=== PATIENT | female | born 1930 | race Caucasian/White ===

== ENCOUNTER 2018-02-17 04:59 | Inpatient (IN) | payer MEDICARE, MEDICAID ==
[2018-02-17] MEDS: SODIUM CHLORIDE 0.9% 1L BAG IV* (05:06)
[2018-02-17 06:26] LABS: ADD MAN DIFF? NO
[2018-02-17] MEDS: ALBUTEROL 0.5% (NEB) 2.5 MG/0.5 ML AMP INH (06:44)
[2018-02-17] MEDS: IPRATROPIUM (NEB) 0.5 MG/2.5 ML AMP INH (06:44)
[2018-02-17 06:47] LABS: INR 1.23; PROTIME 15.7 Sec (11.9-14.9); PT RATIO 1.2
[2018-02-17 06:48] LABS: PARTIAL THROMBOPLASTIN TIME 48.4 Sec (23.0-35.0)
[2018-02-17] MEDS ORDERED: SUCCINYLCHOLINE CHLORIDE 100 MG/5 ML SYG IV (07:00)
[2018-02-17] MEDS ORDERED: ETOMIDATE 20 MG INJ (07:00)
[2018-02-17] MEDS ORDERED: NORepinephrine 8MG/250 ML BAG (07:00)
[2018-02-17] MEDS ORDERED: MIDAZOLAM 1 MG/ML 2 ML INJ (07:00)
[2018-02-17 07:01] LABS: ALANINE AMINOTRANSFERASE 14 IU/L (13-69); ALBUMIN 3.5 g/dl (3.3-4.9); ALBUMIN/GLOBULIN RATIO 1.09; ALKALINE PHOSPHATASE 115 IU/L (42-121); ANION GAP 7 (5-13); ASPARTATE AMINO TRANSFERASE 30 IU/L (15-46); BILIRUBIN,INDIRECT 0.1 mg/dl (0-1.1); BILIRUBIN,TOTAL 0.1 mg/dl (0.2-1.3); BLOOD UREA NITROGEN 21 mg/dl (7-20); CALCIUM 9.1 mg/dl (8.4-10.2); CARBON DIOXIDE 35 mmol/L (21-31); CHLORIDE 99 mmol/L (97-110); CREATININE 0.65 mg/dl (0.44-1.00); GLUCOSE 118 mg/dl (70-220); POTASSIUM 4.7 mmol/L (3.5-5.1); SODIUM 141 mmol/L (135-144); TOTAL PROTEIN 6.7 g/dl (6.1-8.1)
[2018-02-17 07:11] LABS: WHITE BLOOD COUNT 18.1 10^3/ul (4.8-10.8)
[2018-02-17 07:11] LABS: BASOPHIL # 0.1 10^3/ul (0.0-0.1); BASOPHILS % 0.3 % (0.0-2.0); HEMATOCRIT 40.5 % (37.0-47.0); HEMOGLOBIN 12.2 g/dl (12.0-16.0); LYMPHOCYTES # 1.8 10^3/ul (0.8-2.9); LYMPHOCYTES % 10.1 % (15.0-51.0); MEAN CORPUSCULAR HEMOGLOBIN 26.2 pg (29.0-33.0); MEAN CORPUSCULAR HGB CONC 30.1 g/dl (32.0-37.0); MEAN CORPUSCULAR VOLUME 87.1 fl (82.0-101.0); MEAN PLATELET VOLUME 11.1 fl (7.4-10.4); MONOCYTES % 5.5 % (0.0-11.0); NEUTROPHIL # 15.1 10^3/ul (1.6-7.5); NEUTROPHILS % 83.3 % (39.0-77.0); PLATELET COUNT 286 10^3/UL (140-415); RED BLOOD COUNT 4.65 10^6/ul (4.20-5.40); RED CELL DISTRIBUTION WIDTH 14.7 % (11.5-14.5); TROPONIN-I 0.025 ng/ml (0.000-0.120)
[2018-02-17] MEDS: ETOMIDATE 20 MG INJ IV (07:14)
[2018-02-17] MEDS: SUCCINYLCHOLINE CHLORIDE 100 MG/5 ML SYG IV (07:14)
[2018-02-17] MEDS: CEFEPIME 2GM/50 ML (PMX) 50 ML IVPB ×2 (07:14→20:18)
[2018-02-17 07:25] LABS: ADD UMIC YES; UR ASCORBIC ACID 40 mg/dL (NEGATIVE); UR BILIRUBIN (Dip) NEGATIVE (NEGATIVE); UR BLOOD (Dip) NEGATIVE (NEGATIVE); UR CLARITY SLIGHTLY CLOUDY (CLEAR); UR COLOR YELLOW (YELLOW); UR GLUCOSE (Dip) NEGATIVE (NEGATIVE); UR KETONES (Dip) NEGATIVE (NEGATIVE); UR LEUKOCYTE ESTERASE (Dip) NEGATIVE Leu/ul (NEGATIVE); UR MUCUS FEW /HPF (NONE SEEN); UR NITRITE (Dip) NEGATIVE (NEGATIVE); UR RBC 6 /HPF (0-5); UR SQUAMOUS EPITHELIAL CELL FEW /HPF (FEW); UR TOTAL PROTEIN (Dip) 1+ mg/dl (NEGATIVE); UR UROBILINOGEN (Dip) NEGATIVE (NEGATIVE); UR WBC 3 /HPF (0-5)
[2018-02-17 07:49] LABS: AADO2 Arterial 336.3 mmHg (7.0-24.0); Allen Test ACCEPTAB; Arterial Base Excess 2.4 mmol/L (-3.0-3); Arterial Blood Gas Oxygen Sat 99.3 mmHG (95.0-100.0); Arterial COHb 0.8 % (0.0-3.0); Arterial Fraction of Oxyhgb 98.2 % (93.0-99.0); Arterial HCO3 29.2 mmol/L (22.0-26.0); Arterial MetHb 0.3 % (0.0-1.5); Arterial pCO2 55.4 mmhg (35-45); MODE VENT - AC; Site Right Radial
[2018-02-17] MEDS ORDERED: MIDAZOLAM 5 MG/ML 1 ML (08:00)
[2018-02-17] MEDS: FENTAnyl (DRIP) 1000 mcg/100mL 100 ML IV (08:18)
[2018-02-17] MEDS: VANCOMYCIN 1 GM (PMX) 250 ML IVPB (08:19)
[2018-02-17] MEDS: MIDAZOLAM (DRIP) 50 mg/50 mL 50 ML IV ×2 (08:45→23:47)
[2018-02-17] MEDS ORDERED: NACL 0.9% 3 ML SYG IV (10:00)
[2018-02-17 10:21] LABS: LACTIC ACID 1.6 mmol/L (0.5-2.0)
[2018-02-17 10:21] LABS: MAGNESIUM 1.8 mg/dl (1.7-2.5)
[2018-02-17] MEDS ORDERED: VANCOMYCIN IV PER PHARMACY XX (10:30)
[2018-02-17 10:31] LABS: B-TYPE NATRIURETIC PEPTIDE 3980 PG/ML (0-450)
[2018-02-17] MEDS: FUROSEMIDE 40 MG INJ IV (11:28)
[2018-02-17] MEDS ORDERED: HEPARIN 5,000 UNIT/1 ML VIAL SC (14:00)
[2018-02-17] MEDS: ENOXAPARIN 60 MG/0.6 ML SYG SC (20:17)
[2018-02-17] MEDS: SOD CHLORIDE 0.9% 1,000 ML IV ×2 (22:32→23:20)
[2018-02-18 04:52] LABS: ADD MAN DIFF? NO
[2018-02-18 04:56] LABS: WHITE BLOOD COUNT 9.6 10^3/ul (4.8-10.8)
[2018-02-18 04:56] LABS: BASOPHILS % 0.3 % (0.0-2.0); HEMOGLOBIN 9.9 g/dl (12.0-16.0); LYMPHOCYTES # 1.1 10^3/ul (0.8-2.9); LYMPHOCYTES % 11.6 % (15.0-51.0); MEAN CORPUSCULAR HEMOGLOBIN 26.2 pg (29.0-33.0); MEAN CORPUSCULAR HGB CONC 30.9 g/dl (32.0-37.0); MEAN CORPUSCULAR VOLUME 84.7 fl (82.0-101.0); MEAN PLATELET VOLUME 11.9 fl (7.4-10.4); MONOCYTE # 0.8 10^3/ul (0.3-0.9); MONOCYTES % 7.9 % (0.0-11.0); NEUTROPHIL # 7.7 10^3/ul (1.6-7.5); NEUTROPHILS % 79.8 % (39.0-77.0); PLATELET COUNT 220 10^3/UL (140-415); RED BLOOD COUNT 3.78 10^6/ul (4.20-5.40); RED CELL DISTRIBUTION WIDTH 15.2 % (11.5-14.5)
[2018-02-18 05:01] LABS: HEMOGLOBIN A1C 5.3 % (0-5.9)
[2018-02-18 05:28] LABS: ALANINE AMINOTRANSFERASE 25 IU/L (13-69); ALBUMIN 2.7 g/dl (3.3-4.9); ALBUMIN/GLOBULIN RATIO 1.03; ALKALINE PHOSPHATASE 98 IU/L (42-121); ANION GAP 4 (5-13); ASPARTATE AMINO TRANSFERASE 24 IU/L (15-46); BILIRUBIN,INDIRECT 0.2 mg/dl (0-1.1); BILIRUBIN,TOTAL 0.2 mg/dl (0.2-1.3); BLOOD UREA NITROGEN 25 mg/dl (7-20); CALCIUM 8.2 mg/dl (8.4-10.2); CARBON DIOXIDE 31 mmol/L (21-31); CHLORIDE 107 mmol/L (97-110); CREATININE 0.87 mg/dl (0.44-1.00); GLUCOSE 131 mg/dl (70-220); MAGNESIUM 1.9 mg/dl (1.7-2.5); PHOSPHORUS 1.7 mg/dl (2.5-4.9); SODIUM 142 mmol/L (135-144); TOTAL PROTEIN 5.3 g/dl (6.1-8.1)
[2018-02-18] MEDS: PANTOPRAZOLE 40 MG INJ IV (06:00)
[2018-02-18 08:38] LABS: AADO2 Arterial 145.6 mmHg (7.0-24.0); Allen Test ACCEPTAB; Arterial Base Excess 3.6 mmol/L (-3.0-3); Arterial Blood Gas Oxygen Sat 96.7 mmHG (95.0-100.0); Arterial COHb 0.9 % (0.0-3.0); Arterial Fraction of Oxyhgb 95.5 % (93.0-99.0); Arterial HCO3 27.7 mmol/L (22.0-26.0); Arterial MetHb 0.3 % (0.0-1.5); Arterial Total Hemglobin 11.1 g/dl (12.0-18.0); MODE VENT - AC; Site Right Radial
[2018-02-18] MEDS: FUROSEMIDE 40 MG INJ IV (08:57)
[2018-02-18] MEDS: CEFEPIME 2GM/50 ML (PMX) 50 ML IVPB ×2 (09:02→20:21)
[2018-02-18] MEDS: ASPIRIN (EC) 81 MG TAB PO (09:05)
[2018-02-18] MEDS: VANCOMYCIN 750 MG in SOD CHLORIDE 0.9% 150 ML IVPB (09:18)
[2018-02-18] MEDS: ENOXAPARIN 60 MG/0.6 ML SYG SC ×2 (09:27→20:22)
[2018-02-18] MEDS: SODIUM PHOSPHATE 30 MMOL in SOD CHLORIDE 0.9% 250 ML IVPB (09:55)
[2018-02-18] MEDS: LEVOTHYROXINE 100 MCG VIAL IV (10:57)
[2018-02-18] MEDS: DIGOXIN 0.125 MG TAB PO (12:38)
[2018-02-18] MEDS: SOD CHLORIDE 0.9% 1,000 ML IV (12:38)
[2018-02-18] MEDS: ACETAMINOPHEN 650MG/20.3ML CUP NGT (21:14)
[2018-02-18] MEDS: FENTAnyl (DRIP) 1000 mcg/100mL 100 ML IV (21:29)
[2018-02-18] MEDS ORDERED: NORepinephrine 8MG/250 ML (PMX 250 ML (22:42)
[2018-02-18] MEDS ORDERED: ALBUMIN HUMAN 25% 100 ML (22:49)
[2018-02-18] MEDS: ALBUMIN HUMAN 25% 100 ML IV ×2 (23:02→23:08)
[2018-02-18] MEDS: NORepinephrine 8MG/250 ML (PMX 250 ML IV (23:49)
[2018-02-19] MEDS: SOD CHLORIDE 0.9% 1,000 ML IV ×2 (03:42→18:28)
[2018-02-19 05:08] LABS: ADD MAN DIFF? NO
[2018-02-19 05:14] LABS: BASOPHILS % 0.2 % (0.0-2.0); EOSINOPHILS % 0.3 % (0.0-7.0); HEMATOCRIT 31.3 % (37.0-47.0); HEMOGLOBIN 9.5 g/dl (12.0-16.0); LYMPHOCYTES # 1.2 10^3/ul (0.8-2.9); LYMPHOCYTES % 13.3 % (15.0-51.0); MEAN CORPUSCULAR HGB CONC 30.4 g/dl (32.0-37.0); MEAN CORPUSCULAR VOLUME 85.5 fl (82.0-101.0); MEAN PLATELET VOLUME 11.9 fl (7.4-10.4); MONOCYTE # 0.6 10^3/ul (0.3-0.9); MONOCYTES % 6.5 % (0.0-11.0); NEUTROPHIL # 7.3 10^3/ul (1.6-7.5); NEUTROPHILS % 79.3 % (39.0-77.0); PLATELET COUNT 194 10^3/UL (140-415); RED BLOOD COUNT 3.66 10^6/ul (4.20-5.40); RED CELL DISTRIBUTION WIDTH 15.3 % (11.5-14.5)
[2018-02-19 05:14] LABS: WHITE BLOOD COUNT 9.3 10^3/ul (4.8-10.8)
[2018-02-19] MEDS: PANTOPRAZOLE 40 MG INJ IV (05:31)
[2018-02-19 05:45] LABS: ANION GAP 10 (5-13); BLOOD UREA NITROGEN 25 mg/dl (7-20); CALCIUM 8.2 mg/dl (8.4-10.2); CARBON DIOXIDE 30 mmol/L (21-31); CHLORIDE 107 mmol/L (97-110); CREATININE 0.71 mg/dl (0.44-1.00); GLUCOSE 126 mg/dl (70-220); PHOSPHORUS 2.3 mg/dl (2.5-4.9); SODIUM 147 mmol/L (135-144)
[2018-02-19 05:52] LABS: POTASSIUM 2.9 mmol/L (3.5-5.1)
[2018-02-19] MEDS: POTASSIUM CHLORIDE 50 ML IVPB ×2 (06:19→08:37)
[2018-02-19] MEDS: CEFEPIME 2GM/50 ML (PMX) 50 ML IVPB (08:37)
[2018-02-19] MEDS: ENOXAPARIN 60 MG/0.6 ML SYG SC ×2 (08:41→21:32)
[2018-02-19] MEDS: FUROSEMIDE 40 MG INJ IV (08:42)
[2018-02-19] MEDS: ASPIRIN (EC) 81 MG TAB PO (08:42)
[2018-02-19] MEDS: LEVOTHYROXINE 100 MCG VIAL IV (08:43)
[2018-02-19 09:13] LABS: AADO2 Arterial 100.6 mmHg (7.0-24.0); Allen Test ACCEPTAB; Arterial Base Excess 4.2 mmol/L (-3.0-3); Arterial Blood Gas Oxygen Sat 94.1 mmHG (95.0-100.0); Arterial COHb 1.1 % (0.0-3.0); Arterial Fraction of Oxyhgb 92.8 % (93.0-99.0); Arterial MetHb 0.3 % (0.0-1.5); Arterial Total Hemglobin 10.2 g/dl (12.0-18.0); Arterial pCO2 38.6 mmhg (35-45); MODE VENT - AC; Site Right Radial
[2018-02-19] MEDS: DEXMEDETOMIDINE HCL 200 MCG in SOD CHLORIDE 0.9% 48 ML IV ×2 (09:57→18:43)
[2018-02-19] MEDS ORDERED: POTASSIUM CHLORIDE 100 ML IVPB (10:00)
[2018-02-19] MEDS ORDERED: POTASSIUM PHOSPHATE 20 MEQ in SOD CHLORIDE 0.9% 250 ML IVPB (10:00)
[2018-02-19] MEDS: POTASSIUM PHOSPHATE 40 MEQ in SOD CHLORIDE 0.9% 250 ML IVPB (11:46)
[2018-02-19] MEDS: VANCOMYCIN 750 MG in SOD CHLORIDE 0.9% 150 ML IVPB (12:09)
[2018-02-19] MEDS: LIDOCAINE 1% (MPF) 5 ML VIAL SC (14:10)
[2018-02-19] MEDS: DIGOXIN 0.125 MG TAB PO (15:19)
[2018-02-20] MEDS: PIPER-TAZO 3.375 GM IV (PMX) 100 ML IVPB ×5 (00:06→23:29)
[2018-02-20] MEDS: FENTAnyl (DRIP) 1000 mcg/100mL 100 ML IV ×2 (00:26→22:23)
[2018-02-20] MEDS: DEXMEDETOMIDINE HCL 200 MCG in SOD CHLORIDE 0.9% 48 ML IV ×3 (04:06→19:10)
[2018-02-20 04:57] LABS: ADD MAN DIFF? NO
[2018-02-20] MEDS ORDERED: ALBUMIN HUMAN 25% 100 ML (05:00)
[2018-02-20 05:01] LABS: BASOPHILS % 0.5 % (0.0-2.0); EOSINOPHILS % 0.3 % (0.0-7.0); HEMATOCRIT 28.5 % (37.0-47.0); HEMOGLOBIN 8.6 g/dl (12.0-16.0); LYMPHOCYTES # 0.7 10^3/ul (0.8-2.9); LYMPHOCYTES % 11.6 % (15.0-51.0); MEAN CORPUSCULAR HEMOGLOBIN 25.6 pg (29.0-33.0); MEAN CORPUSCULAR HGB CONC 30.2 g/dl (32.0-37.0); MEAN CORPUSCULAR VOLUME 84.8 fl (82.0-101.0); MEAN PLATELET VOLUME 11.6 fl (7.4-10.4); MONOCYTE # 0.4 10^3/ul (0.3-0.9); MONOCYTES % 7.2 % (0.0-11.0); NEUTROPHIL # 4.8 10^3/ul (1.6-7.5); NEUTROPHILS % 79.7 % (39.0-77.0); PLATELET COUNT 182 10^3/UL (140-415); RED BLOOD COUNT 3.36 10^6/ul (4.20-5.40); RED CELL DISTRIBUTION WIDTH 15.5 % (11.5-14.5)
[2018-02-20] MEDS: PANTOPRAZOLE 40 MG INJ IV (05:05)
[2018-02-20] MEDS: ALBUMIN HUMAN 25% 100 ML IV (05:06)
[2018-02-20 05:31] LABS: MAGNESIUM 1.7 mg/dl (1.7-2.5)
[2018-02-20 07:22] LABS: ANION GAP 9 (5-13); BLOOD UREA NITROGEN 21 mg/dl (7-20); CARBON DIOXIDE 25 mmol/L (21-31); CHLORIDE 114 mmol/L (97-110); CREATININE 0.51 mg/dl (0.44-1.00); GLUCOSE 115 mg/dl (70-220); SODIUM 148 mmol/L (135-144)
[2018-02-20 07:28] LABS: POTASSIUM 2.9 mmol/L (3.5-5.1)
[2018-02-20] MEDS ORDERED: POTASSIUM CHLORIDE 100 ML (08:09)
[2018-02-20] MEDS: ENOXAPARIN 60 MG/0.6 ML SYG SC (08:40)
[2018-02-20] MEDS: SOD CHLORIDE 0.9% 1,000 ML IV ×2 (08:42→22:26)
[2018-02-20] MEDS: LEVOTHYROXINE 100 MCG VIAL IV (08:42)
[2018-02-20] MEDS: ASPIRIN (EC) 81 MG TAB PO (08:42)
[2018-02-20] MEDS ORDERED: MAGNESIUM SULFATE 1 GM/D5W 100 ML (09:00)
[2018-02-20] MEDS: MAGNESIUM SULFATE 1 GM/D5W 100 ML IVPB (09:12)
[2018-02-20] MEDS: POTASSIUM CHLORIDE 50 ML IVPB ×2 (09:13→12:51)
[2018-02-20] MEDS: POTASSIUM PHOSPHATE 30 MM in DEXTROSE 5% 250 ML IVPB (12:17)
[2018-02-20] MEDS: DIGOXIN 0.125 MG TAB PO (12:58)
[2018-02-20] MEDS: VANCOMYCIN 750 MG in SOD CHLORIDE 0.9% 150 ML IVPB (14:35)
[2018-02-20] MEDS: POTASSIUM CHLORIDE 20 MEQ POWDER FOR ORAL SOLN NGT (15:50)
[2018-02-20] MEDS: MAGNESIUM SULFATE 2 GM/50 ML 50 ML IVPB (15:50)
[2018-02-20] MEDS: NORepinephrine 8MG/250 ML (PMX 250 ML IV (22:22)
[2018-02-21 01:06] LABS: ANION GAP 4 (5-13); BLOOD UREA NITROGEN 21 mg/dl (7-20); CALCIUM 7.5 mg/dl (8.4-10.2); CARBON DIOXIDE 25 mmol/L (21-31); CHLORIDE 118 mmol/L (97-110); CREATININE 0.56 mg/dl (0.44-1.00); GLUCOSE 149 mg/dl (70-220); MAGNESIUM 2.6 mg/dl (1.7-2.5); PHOSPHORUS 2.8 mg/dl (2.5-4.9); POTASSIUM 3.9 mmol/L (3.5-5.1); SODIUM 147 mmol/L (135-144)
[2018-02-21] MEDS: VANCOMYCIN 500MG/NS (PMX) 100 ML IVPB ×2 (02:30→16:12)
[2018-02-21] MEDS: DEXMEDETOMIDINE HCL 200 MCG in SOD CHLORIDE 0.9% 48 ML IV (02:37)
[2018-02-21 05:14] LABS: ADD MAN DIFF? NO
[2018-02-21 05:15] LABS: BASOPHILS % 0.2 % (0.0-2.0); EOSINOPHILS % 0.2 % (0.0-7.0); HEMATOCRIT 29.8 % (37.0-47.0); HEMOGLOBIN 8.9 g/dl (12.0-16.0); LYMPHOCYTES # 1.1 10^3/ul (0.8-2.9); LYMPHOCYTES % 11.2 % (15.0-51.0); MEAN CORPUSCULAR HEMOGLOBIN 25.6 pg (29.0-33.0); MEAN CORPUSCULAR HGB CONC 29.9 g/dl (32.0-37.0); MEAN CORPUSCULAR VOLUME 85.9 fl (82.0-101.0); MEAN PLATELET VOLUME 11.9 fl (7.4-10.4); MONOCYTE # 0.5 10^3/ul (0.3-0.9); MONOCYTES % 5.5 % (0.0-11.0); NEUTROPHIL # 7.9 10^3/ul (1.6-7.5); NEUTROPHILS % 81.3 % (39.0-77.0); PLATELET COUNT 227 10^3/UL (140-415); RED BLOOD COUNT 3.47 10^6/ul (4.20-5.40); RED CELL DISTRIBUTION WIDTH 15.8 % (11.5-14.5)
[2018-02-21 05:15] LABS: WHITE BLOOD COUNT 9.7 10^3/ul (4.8-10.8)
[2018-02-21] MEDS: PIPER-TAZO 3.375 GM IV (PMX) 100 ML IVPB ×3 (05:18→18:55)
[2018-02-21] MEDS: PANTOPRAZOLE 40 MG INJ IV (05:18)
[2018-02-21 05:32] LABS: ALANINE AMINOTRANSFERASE 29 IU/L (13-69); ALBUMIN 2.6 g/dl (3.3-4.9); ALBUMIN/GLOBULIN RATIO 1.18; ALKALINE PHOSPHATASE 106 IU/L (42-121); ANION GAP 9 (5-13); ASPARTATE AMINO TRANSFERASE 27 IU/L (15-46); BILIRUBIN,INDIRECT 0.2 mg/dl (0-1.1); BILIRUBIN,TOTAL 0.2 mg/dl (0.2-1.3); BLOOD UREA NITROGEN 19 mg/dl (7-20); CALCIUM 7.3 mg/dl (8.4-10.2); CARBON DIOXIDE 25 mmol/L (21-31); CHLORIDE 117 mmol/L (97-110); GLUCOSE 157 mg/dl (70-220); MAGNESIUM 2.3 mg/dl (1.7-2.5); POTASSIUM 3.8 mmol/L (3.5-5.1); SODIUM 151 mmol/L (135-144); TOTAL PROTEIN 4.8 g/dl (6.1-8.1)
[2018-02-21] MEDS: POTASSIUM CHLORIDE 20 MEQ POWDER FOR ORAL SOLN NGT (08:33)
[2018-02-21] MEDS: ASPIRIN (EC) 81 MG TAB PO (08:33)
[2018-02-21] MEDS: FUROSEMIDE 20 MG INJ IV (08:33)
[2018-02-21] MEDS: LEVOTHYROXINE 100 MCG VIAL IV (08:34)
[2018-02-21] MEDS: ENOXAPARIN 60 MG/0.6 ML SYG SC (08:40)
[2018-02-21] MEDS: ASPIRIN 81 MG TAB NGT (09:00)
[2018-02-21] MEDS ORDERED: PHYTONADIONE 10 MG in DEXTROSE 5% 50 ML IVPB (11:00)
[2018-02-21] MEDS: PROPOFOL 100 ML IV ×2 (11:30→22:15)
[2018-02-21] MEDS: FENTAnyl (DRIP) 1000 mcg/100mL 100 ML IV (13:52)
[2018-02-22] MEDS: PIPER-TAZO 3.375 GM IV (PMX) 100 ML IVPB ×4 (00:03→17:58)
[2018-02-22] MEDS: FENTAnyl (DRIP) 1000 mcg/100mL 100 ML IV ×2 (04:03→19:31)
[2018-02-22] MEDS: PANTOPRAZOLE 40 MG INJ IV (05:32)
[2018-02-22 05:43] LABS: ADD MAN DIFF? NO
[2018-02-22 05:55] LABS: BASOPHILS % 0.4 % (0.0-2.0); EOSINOPHILS % 0.3 % (0.0-7.0); HEMATOCRIT 29.8 % (37.0-47.0); HEMOGLOBIN 8.9 g/dl (12.0-16.0); LYMPHOCYTES % 12.6 % (15.0-51.0); MEAN CORPUSCULAR HEMOGLOBIN 25.7 pg (29.0-33.0); MEAN CORPUSCULAR HGB CONC 29.9 g/dl (32.0-37.0); MEAN CORPUSCULAR VOLUME 86.1 fl (82.0-101.0); MEAN PLATELET VOLUME 12.3 fl (7.4-10.4); MONOCYTE # 0.5 10^3/ul (0.3-0.9); MONOCYTES % 6.2 % (0.0-11.0); NEUTROPHIL # 6.2 10^3/ul (1.6-7.5); NEUTROPHILS % 78.3 % (39.0-77.0); PLATELET COUNT 230 10^3/UL (140-415); RED BLOOD COUNT 3.46 10^6/ul (4.20-5.40); RED CELL DISTRIBUTION WIDTH 15.9 % (11.5-14.5)
[2018-02-22 05:55] LABS: WHITE BLOOD COUNT 7.9 10^3/ul (4.8-10.8)
[2018-02-22 06:15] LABS: DIGOXIN 0.6 ng/ml (1.0-2.0)
[2018-02-22 06:21] LABS: ALANINE AMINOTRANSFERASE 34 IU/L (13-69); ALBUMIN 2.8 g/dl (3.3-4.9); ALBUMIN/GLOBULIN RATIO 1.16; ALKALINE PHOSPHATASE 110 IU/L (42-121); ANION GAP 5 (5-13); ASPARTATE AMINO TRANSFERASE 45 IU/L (15-46); BILIRUBIN,INDIRECT 0.1 mg/dl (0-1.1); BILIRUBIN,TOTAL 0.1 mg/dl (0.2-1.3); BLOOD UREA NITROGEN 28 mg/dl (7-20); CALCIUM 8.6 mg/dl (8.4-10.2); CARBON DIOXIDE 31 mmol/L (21-31); CHLORIDE 112 mmol/L (97-110); CREATININE 0.85 mg/dl (0.44-1.00); GLUCOSE 143 mg/dl (70-220); MAGNESIUM 2.4 mg/dl (1.7-2.5); POTASSIUM 4.1 mmol/L (3.5-5.1); SODIUM 148 mmol/L (135-144); TOTAL PROTEIN 5.2 g/dl (6.1-8.1)
[2018-02-22 06:37] LABS: FREE T4 (FREE THYROXINE) 1.67 ng/dl (0.85-1.93)
[2018-02-22] MEDS: ASPIRIN 81 MG TAB NGT (08:47)
[2018-02-22] MEDS: ENOXAPARIN 60 MG/0.6 ML SYG SC (08:50)
[2018-02-22] MEDS: LEVOTHYROXINE 100 MCG VIAL IV (10:30)
[2018-02-22] MEDS: DIGOXIN 0.125 MG TAB PO (12:22)
[2018-02-22] MEDS: PROPOFOL 100 ML IV (12:29)
[2018-02-22] MEDS: FUROSEMIDE 20 MG INJ IV (20:11)
[2018-02-22] MEDS: NORepinephrine 8MG/250 ML (PMX 250 ML IV (22:57)
[2018-02-23] MEDS: PIPER-TAZO 3.375 GM IV (PMX) 100 ML IVPB ×5 (00:31→23:00)
[2018-02-23] MEDS: PROPOFOL 100 ML IV ×3 (00:31→23:01)
[2018-02-23 04:54] LABS: ADD MAN DIFF? NO
[2018-02-23 04:58] LABS: WHITE BLOOD COUNT 10.2 10^3/ul (4.8-10.8)
[2018-02-23 04:58] LABS: BASOPHILS % 0.4 % (0.0-2.0); EOSINOPHILS % 0.2 % (0.0-7.0); HEMATOCRIT 30.4 % (37.0-47.0); LYMPHOCYTES % 9.7 % (15.0-51.0); MEAN CORPUSCULAR HEMOGLOBIN 25.6 pg (29.0-33.0); MEAN CORPUSCULAR HGB CONC 29.6 g/dl (32.0-37.0); MEAN CORPUSCULAR VOLUME 86.4 fl (82.0-101.0); MEAN PLATELET VOLUME 11.8 fl (7.4-10.4); MONOCYTE # 0.4 10^3/ul (0.3-0.9); MONOCYTES % 4.1 % (0.0-11.0); NEUTROPHIL # 8.5 10^3/ul (1.6-7.5); NEUTROPHILS % 83.2 % (39.0-77.0); PLATELET COUNT 256 10^3/UL (140-415); RED BLOOD COUNT 3.52 10^6/ul (4.20-5.40); RED CELL DISTRIBUTION WIDTH 15.7 % (11.5-14.5)
[2018-02-23 05:21] LABS: ALANINE AMINOTRANSFERASE 31 IU/L (13-69); ALBUMIN 2.8 g/dl (3.3-4.9); ALBUMIN/GLOBULIN RATIO 0.93; ALKALINE PHOSPHATASE 102 IU/L (42-121); ANION GAP 8 (5-13); ASPARTATE AMINO TRANSFERASE 35 IU/L (15-46); BILIRUBIN,INDIRECT 0.2 mg/dl (0-1.1); BILIRUBIN,TOTAL 0.2 mg/dl (0.2-1.3); BLOOD UREA NITROGEN 26 mg/dl (7-20); CALCIUM 8.5 mg/dl (8.4-10.2); CARBON DIOXIDE 31 mmol/L (21-31); CHLORIDE 110 mmol/L (97-110); CREATININE 0.72 mg/dl (0.44-1.00); GLUCOSE 125 mg/dl (70-220); MAGNESIUM 2.1 mg/dl (1.7-2.5); POTASSIUM 3.7 mmol/L (3.5-5.1); SODIUM 149 mmol/L (135-144); TOTAL PROTEIN 5.8 g/dl (6.1-8.1)
[2018-02-23] MEDS: PANTOPRAZOLE 40 MG INJ IV (05:24)
[2018-02-23] MEDS: FENTAnyl (DRIP) 1000 mcg/100mL 100 ML IV ×2 (06:05→18:29)
[2018-02-23] MEDS ORDERED: DOCUSATE SODIUM 100 MG CAP PO (09:30)
[2018-02-23] MEDS: LEVOTHYROXINE 100 MCG VIAL IV (09:37)
[2018-02-23] MEDS: DOCUSATE SODIUM 10 MG/ML (10ML CUP) NGT ×2 (09:38→20:07)
[2018-02-23] MEDS: ASPIRIN 81 MG TAB NGT (09:38)
[2018-02-23] MEDS: ENOXAPARIN 60 MG/0.6 ML SYG SC (09:41)
[2018-02-23] MEDS: POTASSIUM CHLORIDE 20 MEQ POWDER FOR ORAL SOLN PO (17:07)
[2018-02-23] MEDS: FUROSEMIDE 20 MG INJ IV (17:07)
[2018-02-24 05:16] LABS: ADD MAN DIFF? NO
[2018-02-24] MEDS: PIPER-TAZO 3.375 GM IV (PMX) 100 ML IVPB ×3 (05:20→17:41)
[2018-02-24] MEDS: PANTOPRAZOLE 40 MG INJ IV (05:20)
[2018-02-24 05:27] LABS: WHITE BLOOD COUNT 12.3 10^3/ul (4.8-10.8)
[2018-02-24 05:27] LABS: BASOPHILS % 0.3 % (0.0-2.0); EOSINOPHILS % 0.2 % (0.0-7.0); HEMATOCRIT 30.7 % (37.0-47.0); HEMOGLOBIN 9.4 g/dl (12.0-16.0); LYMPHOCYTES # 1.3 10^3/ul (0.8-2.9); LYMPHOCYTES % 10.9 % (15.0-51.0); MEAN CORPUSCULAR HEMOGLOBIN 26.5 pg (29.0-33.0); MEAN CORPUSCULAR HGB CONC 30.6 g/dl (32.0-37.0); MEAN CORPUSCULAR VOLUME 86.5 fl (82.0-101.0); MEAN PLATELET VOLUME 12.3 fl (7.4-10.4); MONOCYTE # 0.6 10^3/ul (0.3-0.9); MONOCYTES % 4.5 % (0.0-11.0); NEUTROPHIL # 10.1 10^3/ul (1.6-7.5); NEUTROPHILS % 81.9 % (39.0-77.0); PLATELET COUNT 289 10^3/UL (140-415); RED BLOOD COUNT 3.55 10^6/ul (4.20-5.40); RED CELL DISTRIBUTION WIDTH 15.8 % (11.5-14.5)
[2018-02-24 05:34] LABS: ANION GAP 7 (5-13); BLOOD UREA NITROGEN 21 mg/dl (7-20); CALCIUM 8.3 mg/dl (8.4-10.2); CARBON DIOXIDE 33 mmol/L (21-31); CHLORIDE 103 mmol/L (97-110); CREATININE 0.69 mg/dl (0.44-1.00); GLUCOSE 108 mg/dl (70-220); POTASSIUM 3.8 mmol/L (3.5-5.1); SODIUM 143 mmol/L (135-144)
[2018-02-24 05:43] LABS: B-TYPE NATRIURETIC PEPTIDE 1510 PG/ML (0-450)
[2018-02-24] MEDS: ASPIRIN 81 MG TAB NGT (08:49)
[2018-02-24] MEDS: DOCUSATE SODIUM 10 MG/ML (10ML CUP) NGT ×2 (08:49→21:00)
[2018-02-24] MEDS: LEVOTHYROXINE 100 MCG VIAL IV (08:49)
[2018-02-24] MEDS: ENOXAPARIN 60 MG/0.6 ML SYG SC (08:57)
[2018-02-24] MEDS: NA PHOSPHATE/BIPHOS 133 ML ENEMA PR (09:03)
[2018-02-24] MEDS: FENTAnyl (DRIP) 1000 mcg/100mL 100 ML IV ×2 (09:08→22:07)
[2018-02-24] MEDS: PROPOFOL 100 ML IV ×2 (11:13→19:30)
[2018-02-24] MEDS: DIGOXIN 0.125 MG TAB PO (12:29)
[2018-02-25] MEDS: PIPER-TAZO 3.375 GM IV (PMX) 100 ML IVPB ×5 (00:08→23:19)
[2018-02-25 04:51] LABS: ADD MAN DIFF? NO
[2018-02-25 04:59] LABS: WHITE BLOOD COUNT 12.8 10^3/ul (4.8-10.8)
[2018-02-25 04:59] LABS: BASOPHILS % 0.1 % (0.0-2.0); EOSINOPHILS % 0.2 % (0.0-7.0); HEMATOCRIT 29.2 % (37.0-47.0); HEMOGLOBIN 8.8 g/dl (12.0-16.0); LYMPHOCYTES # 1.1 10^3/ul (0.8-2.9); LYMPHOCYTES % 8.3 % (15.0-51.0); MEAN CORPUSCULAR HEMOGLOBIN 25.9 pg (29.0-33.0); MEAN CORPUSCULAR HGB CONC 30.1 g/dl (32.0-37.0); MEAN CORPUSCULAR VOLUME 85.9 fl (82.0-101.0); MEAN PLATELET VOLUME 12.4 fl (7.4-10.4); MONOCYTE # 0.5 10^3/ul (0.3-0.9); MONOCYTES % 3.7 % (0.0-11.0); NEUTROPHIL # 11.1 10^3/ul (1.6-7.5); NEUTROPHILS % 86.5 % (39.0-77.0); PLATELET COUNT 264 10^3/UL (140-415); RED CELL DISTRIBUTION WIDTH 15.6 % (11.5-14.5)
[2018-02-25] MEDS: PANTOPRAZOLE 40 MG INJ IV (05:25)
[2018-02-25] MEDS: PROPOFOL 100 ML IV ×2 (05:26→15:11)
[2018-02-25 05:34] LABS: ANION GAP 5 (5-13); BLOOD UREA NITROGEN 21 mg/dl (7-20); CALCIUM 8.1 mg/dl (8.4-10.2); CARBON DIOXIDE 31 mmol/L (21-31); CHLORIDE 106 mmol/L (97-110); CREATININE 0.68 mg/dl (0.44-1.00); GLUCOSE 123 mg/dl (70-220); POTASSIUM 3.5 mmol/L (3.5-5.1); SODIUM 142 mmol/L (135-144)
[2018-02-25] MEDS: LEVOTHYROXINE 100 MCG VIAL IV (08:10)
[2018-02-25] MEDS: DOCUSATE SODIUM 10 MG/ML (10ML CUP) NGT ×2 (08:11→20:00)
[2018-02-25] MEDS: ASPIRIN 81 MG TAB NGT (08:11)
[2018-02-25] MEDS: ONDANSETRON 4 MG INJ IV (08:11)
[2018-02-25] MEDS: ENOXAPARIN 60 MG/0.6 ML SYG SC (08:16)
[2018-02-25] MEDS: FENTAnyl (DRIP) 1000 mcg/100mL 100 ML IV (16:12)
[2018-02-26] MEDS: PROPOFOL 100 ML IV ×2 (02:37→16:59)
[2018-02-26 05:19] LABS: ADD MAN DIFF? NO
[2018-02-26 05:22] LABS: WHITE BLOOD COUNT 19.4 10^3/ul (4.8-10.8)
[2018-02-26 05:22] LABS: BASOPHILS % 0.2 % (0.0-2.0); EOSINOPHILS % 0.1 % (0.0-7.0); HEMATOCRIT 30.4 % (37.0-47.0); HEMOGLOBIN 9.6 g/dl (12.0-16.0); LYMPHOCYTES # 1.6 10^3/ul (0.8-2.9); LYMPHOCYTES % 8.4 % (15.0-51.0); MEAN CORPUSCULAR HEMOGLOBIN 26.9 pg (29.0-33.0); MEAN CORPUSCULAR HGB CONC 31.6 g/dl (32.0-37.0); MEAN CORPUSCULAR VOLUME 85.2 fl (82.0-101.0); MEAN PLATELET VOLUME 11.8 fl (7.4-10.4); MONOCYTE # 0.8 10^3/ul (0.3-0.9); NEUTROPHIL # 16.7 10^3/ul (1.6-7.5); NEUTROPHILS % 85.8 % (39.0-77.0); PLATELET COUNT 348 10^3/UL (140-415); RED BLOOD COUNT 3.57 10^6/ul (4.20-5.40); RED CELL DISTRIBUTION WIDTH 15.5 % (11.5-14.5)
[2018-02-26 05:48] LABS: PHOSPHORUS 3.1 mg/dl (2.5-4.9)
[2018-02-26 05:48] LABS: ANION GAP 8 (5-13); BLOOD UREA NITROGEN 19 mg/dl (7-20); CALCIUM 7.9 mg/dl (8.4-10.2); CARBON DIOXIDE 30 mmol/L (21-31); CHLORIDE 104 mmol/L (97-110); CREATININE 0.69 mg/dl (0.44-1.00); GLUCOSE 142 mg/dl (70-220); POTASSIUM 3.1 mmol/L (3.5-5.1); SODIUM 142 mmol/L (135-144)
[2018-02-26] MEDS: PIPER-TAZO 3.375 GM IV (PMX) 100 ML IVPB ×4 (05:51→23:53)
[2018-02-26] MEDS: PANTOPRAZOLE 40 MG INJ IV (05:51)
[2018-02-26] MEDS: ASPIRIN 81 MG TAB NGT (09:55)
[2018-02-26] MEDS: POTASSIUM CHLORIDE 20 MEQ POWDER FOR ORAL SOLN NGT (09:55)
[2018-02-26] MEDS: LEVOTHYROXINE 100 MCG VIAL IV (09:55)
[2018-02-26] MEDS: DOCUSATE SODIUM 10 MG/ML (10ML CUP) NGT ×2 (09:55→20:36)
[2018-02-26] MEDS: ENOXAPARIN 60 MG/0.6 ML SYG SC (09:57)
[2018-02-26] MEDS: DIGOXIN 0.125 MG TAB PO (12:15)
[2018-02-26] MEDS: FENTAnyl (DRIP) 1000 mcg/100mL 100 ML IV (19:33)
[2018-02-27 05:05] LABS: ADD MAN DIFF? NO
[2018-02-27 05:13] LABS: WHITE BLOOD COUNT 10.2 10^3/ul (4.8-10.8)
[2018-02-27 05:14] LABS: BASOPHILS % 0.3 % (0.0-2.0); EOSINOPHILS % 0.2 % (0.0-7.0); HEMATOCRIT 28.8 % (37.0-47.0); HEMOGLOBIN 8.7 g/dl (12.0-16.0); LYMPHOCYTES % 10.2 % (15.0-51.0); MEAN CORPUSCULAR HEMOGLOBIN 25.7 pg (29.0-33.0); MEAN CORPUSCULAR HGB CONC 30.2 g/dl (32.0-37.0); MEAN CORPUSCULAR VOLUME 85.2 fl (82.0-101.0); MEAN PLATELET VOLUME 12.1 fl (7.4-10.4); MONOCYTE # 0.5 10^3/ul (0.3-0.9); MONOCYTES % 4.6 % (0.0-11.0); NEUTROPHIL # 8.5 10^3/ul (1.6-7.5); NEUTROPHILS % 83.8 % (39.0-77.0); PLATELET COUNT 313 10^3/UL (140-415); RED BLOOD COUNT 3.38 10^6/ul (4.20-5.40); RED CELL DISTRIBUTION WIDTH 15.5 % (11.5-14.5)
[2018-02-27] MEDS: PROPOFOL 100 ML IV ×2 (05:35→17:17)
[2018-02-27] MEDS: PIPER-TAZO 3.375 GM IV (PMX) 100 ML IVPB ×4 (05:36→23:20)
[2018-02-27] MEDS: PANTOPRAZOLE 40 MG INJ IV (05:36)
[2018-02-27 05:45] LABS: ANION GAP 4 (5-13)
[2018-02-27 05:49] LABS: ALANINE AMINOTRANSFERASE 18 IU/L (13-69); ALBUMIN 2.5 g/dl (3.3-4.9); ALBUMIN/GLOBULIN RATIO 0.83; ALKALINE PHOSPHATASE 73 IU/L (42-121); ASPARTATE AMINO TRANSFERASE 18 IU/L (15-46); B-TYPE NATRIURETIC PEPTIDE 1420 PG/ML (0-450); BILIRUBIN,INDIRECT 0.1 mg/dl (0-1.1); BILIRUBIN,TOTAL 0.1 mg/dl (0.2-1.3); BLOOD UREA NITROGEN 17 mg/dl (7-20); CALCIUM 8.2 mg/dl (8.4-10.2); CARBON DIOXIDE 31 mmol/L (21-31); CHLORIDE 111 mmol/L (97-110); CREATININE 0.67 mg/dl (0.44-1.00); GLUCOSE 117 mg/dl (70-220); MAGNESIUM 2.2 mg/dl (1.7-2.5); POTASSIUM 3.4 mmol/L (3.5-5.1); SODIUM 146 mmol/L (135-144); TOTAL PROTEIN 5.5 g/dl (6.1-8.1)
[2018-02-27] MEDS: ASPIRIN 81 MG TAB NGT (09:12)
[2018-02-27] MEDS: DOCUSATE SODIUM 10 MG/ML (10ML CUP) NGT ×2 (09:13→20:01)
[2018-02-27] MEDS: POTASSIUM CHLORIDE 20 MEQ POWDER FOR ORAL SOLN NGT (09:13)
[2018-02-27] MEDS: ENOXAPARIN 60 MG/0.6 ML SYG SC (09:22)
[2018-02-27] MEDS: LEVOTHYROXINE 100 MCG VIAL IV (10:04)
[2018-02-27 11:04] LABS: AADO2 Arterial 74.4 mmHg (7.0-24.0); Allen Test ACCEPTAB; Arterial Base Excess 4.7 mmol/L (-3.0-3); Arterial Blood Gas Oxygen Sat 94.7 mmHG (95.0-100.0); Arterial COHb 0.3 % (0.0-3.0); Arterial Fraction of Oxyhgb 94.1 % (93.0-99.0); Arterial HCO3 30.9 mmol/L (22.0-26.0); Arterial MetHb 0.3 % (0.0-1.5); Arterial Total Hemglobin 11.1 g/dl (12.0-18.0); Arterial pCO2 53.4 mmhg (35-45); Blood Gas PS 10; MODE VENT - CPAP; Site Right Radial
[2018-02-27 14:12] LABS: AADO2 Arterial 204.3 mmHg (7.0-24.0); Allen Test ACCEPTAB; Arterial Base Excess 5.9 mmol/L (-3.0-3); Arterial Blood Gas Oxygen Sat 97.6 mmHG (95.0-100.0); Arterial COHb 0.1 % (0.0-3.0); Arterial Fraction of Oxyhgb 97.2 % (93.0-99.0); Arterial MetHb 0.3 % (0.0-1.5); Arterial Total Hemglobin 10.1 g/dl (12.0-18.0); Arterial pCO2 41.6 mmhg (35-45); MODE VENT - AC; Site Right Radial
[2018-02-28] MEDS: PROPOFOL 100 ML IV ×3 (00:25→19:42)
[2018-02-28] MEDS: FENTAnyl (DRIP) 1000 mcg/100mL 100 ML IV (03:50)
[2018-02-28 05:15] LABS: ADD MAN DIFF? NO
[2018-02-28 05:22] LABS: WHITE BLOOD COUNT 8.8 10^3/ul (4.8-10.8)
[2018-02-28 05:23] LABS: BASOPHILS % 0.5 % (0.0-2.0); EOSINOPHILS % 0.1 % (0.0-7.0); HEMATOCRIT 29.3 % (37.0-47.0); LYMPHOCYTES # 1.5 10^3/ul (0.8-2.9); LYMPHOCYTES % 17.4 % (15.0-51.0); MEAN CORPUSCULAR HEMOGLOBIN 26.1 pg (29.0-33.0); MEAN CORPUSCULAR HGB CONC 30.7 g/dl (32.0-37.0); MEAN CORPUSCULAR VOLUME 84.9 fl (82.0-101.0); MEAN PLATELET VOLUME 11.7 fl (7.4-10.4); MONOCYTE # 0.5 10^3/ul (0.3-0.9); NEUTROPHIL # 6.5 10^3/ul (1.6-7.5); NEUTROPHILS % 74.1 % (39.0-77.0); PLATELET COUNT 393 10^3/UL (140-415); RED BLOOD COUNT 3.45 10^6/ul (4.20-5.40); RED CELL DISTRIBUTION WIDTH 15.6 % (11.5-14.5)
[2018-02-28] MEDS: PIPER-TAZO 3.375 GM IV (PMX) 100 ML IVPB (05:37)
[2018-02-28] MEDS: PANTOPRAZOLE 40 MG INJ IV (05:37)
[2018-02-28 05:47] LABS: ANION GAP 4 (5-13); BLOOD UREA NITROGEN 16 mg/dl (7-20); CALCIUM 8.1 mg/dl (8.4-10.2); CARBON DIOXIDE 27 mmol/L (21-31); CHLORIDE 115 mmol/L (97-110); CREATININE 0.67 mg/dl (0.44-1.00); GLUCOSE 80 mg/dl (70-220); POTASSIUM 3.7 mmol/L (3.5-5.1); SODIUM 146 mmol/L (135-144)
[2018-02-28] MEDS: ASPIRIN 81 MG TAB NGT (08:12)
[2018-02-28] MEDS: DOCUSATE SODIUM 10 MG/ML (10ML CUP) NGT ×2 (08:12→20:09)
[2018-02-28] MEDS: LEVOTHYROXINE 100 MCG VIAL IV (08:12)
[2018-02-28] MEDS: POTASSIUM CHLORIDE 20 MEQ POWDER FOR ORAL SOLN NGT (08:13)
[2018-02-28] MEDS: ENOXAPARIN 60 MG/0.6 ML SYG SC (08:18)
[2018-02-28] MEDS: DIGOXIN 0.125 MG TAB PO (14:41)
[2018-03-01] MEDS: PANTOPRAZOLE 40 MG INJ IV (05:02)
[2018-03-01 05:48] LABS: ADD MAN DIFF? NO
[2018-03-01 05:58] LABS: BASOPHIL # 0.1 10^3/ul (0.0-0.1); BASOPHILS % 0.6 % (0.0-2.0); EOSINOPHILS % 0.2 % (0.0-7.0); HEMATOCRIT 30.8 % (37.0-47.0); HEMOGLOBIN 9.3 g/dl (12.0-16.0); LYMPHOCYTES # 1.2 10^3/ul (0.8-2.9); MEAN CORPUSCULAR HEMOGLOBIN 25.5 pg (29.0-33.0); MEAN CORPUSCULAR HGB CONC 30.2 g/dl (32.0-37.0); MEAN CORPUSCULAR VOLUME 84.4 fl (82.0-101.0); MONOCYTE # 0.5 10^3/ul (0.3-0.9); MONOCYTES % 6.5 % (0.0-11.0); NEUTROPHIL # 6.2 10^3/ul (1.6-7.5); PLATELET COUNT 417 10^3/UL (140-415); RED BLOOD COUNT 3.65 10^6/ul (4.20-5.40); RED CELL DISTRIBUTION WIDTH 15.7 % (11.5-14.5)
[2018-03-01 05:58] LABS: WHITE BLOOD COUNT 8.2 10^3/ul (4.8-10.8)
[2018-03-01 06:19] LABS: DIGOXIN 0.4 ng/ml (1.0-2.0)
[2018-03-01 06:28] LABS: B-TYPE NATRIURETIC PEPTIDE 1070 PG/ML (0-450)
[2018-03-01 06:38] LABS: ALANINE AMINOTRANSFERASE 17 IU/L (13-69); ALBUMIN 2.7 g/dl (3.3-4.9); ALBUMIN/GLOBULIN RATIO 0.93; ALKALINE PHOSPHATASE 82 IU/L (42-121); ANION GAP 8 (5-13); ASPARTATE AMINO TRANSFERASE 26 IU/L (15-46); BLOOD UREA NITROGEN 18 mg/dl (7-20); CALCIUM 8.1 mg/dl (8.4-10.2); CARBON DIOXIDE 27 mmol/L (21-31); CHLORIDE 112 mmol/L (97-110); CREATININE 0.66 mg/dl (0.44-1.00); GLUCOSE 109 mg/dl (70-220); MAGNESIUM 2.3 mg/dl (1.7-2.5); POTASSIUM 3.6 mmol/L (3.5-5.1); SODIUM 147 mmol/L (135-144); TOTAL PROTEIN 5.6 g/dl (6.1-8.1)
[2018-03-01] MEDS ORDERED: [UNRECOGNIZED DRUG - REMARK] XX (08:30)
[2018-03-01] MEDS ORDERED: [UNRECOGNIZED DRUG - REMARK] XX (08:30)
[2018-03-01] MEDS ORDERED: [UNRECOGNIZED DRUG - OTHER] XX (08:30)
[2018-03-01] MEDS: ASPIRIN 81 MG TAB NGT (09:25)
[2018-03-01] MEDS: DOCUSATE SODIUM 10 MG/ML (10ML CUP) NGT ×2 (09:25→22:02)
[2018-03-01] MEDS: LEVOTHYROXINE 100 MCG VIAL IV (09:26)
[2018-03-01] MEDS ORDERED: POTASSIUM CHLORIDE 100 ML (09:31)
[2018-03-01] MEDS: ENOXAPARIN 60 MG/0.6 ML SYG SC (09:32)
[2018-03-01] MEDS: POTASSIUM CHLORIDE 50 ML IVPB ×2 (09:53→11:50)
[2018-03-01] MEDS: FUROSEMIDE 20 MG INJ IV (10:22)
[2018-03-01] MEDS: POTASSIUM CHLORIDE 20 MEQ POWDER FOR ORAL SOLN PO (13:22)
[2018-03-01] MEDS: FENTAnyl (DRIP) 1000 mcg/100mL 100 ML IV (18:02)
[2018-03-01] MEDS: PROPOFOL 100 ML IV (21:40)
[2018-03-02] MEDS: PANTOPRAZOLE 40 MG INJ IV (05:21)
[2018-03-02 05:40] LABS: ALANINE AMINOTRANSFERASE 17 IU/L (13-69); ALBUMIN 2.7 g/dl (3.3-4.9); ALBUMIN/GLOBULIN RATIO 0.93; ALKALINE PHOSPHATASE 77 IU/L (42-121); ANION GAP 8 (5-13); ASPARTATE AMINO TRANSFERASE 25 IU/L (15-46); BILIRUBIN,INDIRECT 0.1 mg/dl (0-1.1); BILIRUBIN,TOTAL 0.1 mg/dl (0.2-1.3); BLOOD UREA NITROGEN 16 mg/dl (7-20); CALCIUM 8.1 mg/dl (8.4-10.2); CARBON DIOXIDE 27 mmol/L (21-31); CHLORIDE 112 mmol/L (97-110); GLUCOSE 127 mg/dl (70-220); MAGNESIUM 2.2 mg/dl (1.7-2.5); POTASSIUM 3.1 mmol/L (3.5-5.1); SODIUM 147 mmol/L (135-144); TOTAL PROTEIN 5.6 g/dl (6.1-8.1)
[2018-03-02 05:44] LABS: B-TYPE NATRIURETIC PEPTIDE 1700 PG/ML (0-450)
[2018-03-02] MEDS: POTASSIUM CHLORIDE 20 MEQ POWDER FOR ORAL SOLN PO (06:57)
[2018-03-02] MEDS: ASPIRIN 81 MG TAB NGT (08:12)
[2018-03-02] MEDS: DOCUSATE SODIUM 10 MG/ML (10ML CUP) NGT ×2 (08:12→21:00)
[2018-03-02] MEDS: ENOXAPARIN 60 MG/0.6 ML SYG SC (08:27)
[2018-03-02] MEDS: LEVOTHYROXINE 100 MCG VIAL IV (10:00)
[2018-03-02] MEDS: DIGOXIN 0.125 MG TAB PO (12:21)
[2018-03-02] MEDS: PROPOFOL 100 ML IV (12:22)
[2018-03-02] MEDS: FENTAnyl (DRIP) 1000 mcg/100mL 100 ML IV ×2 (12:30→21:38)
[2018-03-02] MEDS: BALSAM PERU/CASTOR OIL 60 GM TUBE TOP ×2 (17:52→21:24)
[2018-03-03] MEDS: PROPOFOL 100 ML IV ×3 (04:42→21:21)
[2018-03-03 04:57] LABS: ADD MAN DIFF? NO
[2018-03-03 05:05] LABS: BASOPHILS % 0.4 % (0.0-2.0); EOSINOPHILS % 0.2 % (0.0-7.0); HEMATOCRIT 29.5 % (37.0-47.0); HEMOGLOBIN 8.9 g/dl (12.0-16.0); LYMPHOCYTES # 1.5 10^3/ul (0.8-2.9); LYMPHOCYTES % 19.1 % (15.0-51.0); MEAN CORPUSCULAR HGB CONC 30.2 g/dl (32.0-37.0); MEAN CORPUSCULAR VOLUME 82.9 fl (82.0-101.0); MEAN PLATELET VOLUME 11.2 fl (7.4-10.4); MONOCYTE # 0.6 10^3/ul (0.3-0.9); MONOCYTES % 6.9 % (0.0-11.0); NEUTROPHIL # 5.8 10^3/ul (1.6-7.5); PLATELET COUNT 365 10^3/UL (140-415); RED BLOOD COUNT 3.56 10^6/ul (4.20-5.40); RED CELL DISTRIBUTION WIDTH 15.9 % (11.5-14.5)
[2018-03-03 05:05] LABS: WHITE BLOOD COUNT 8.1 10^3/ul (4.8-10.8)
[2018-03-03 05:19] LABS: INR 1.09; PROTIME 14.3 Sec (11.9-14.9); PT RATIO 1.1
[2018-03-03 05:26] LABS: ANION GAP 8 (5-13); BLOOD UREA NITROGEN 15 mg/dl (7-20); CALCIUM 8.3 mg/dl (8.4-10.2); CARBON DIOXIDE 24 mmol/L (21-31); CHLORIDE 113 mmol/L (97-110); CREATININE 0.61 mg/dl (0.44-1.00); GLUCOSE 83 mg/dl (70-220); MAGNESIUM 2.2 mg/dl (1.7-2.5); PHOSPHORUS 3.7 mg/dl (2.5-4.9); POTASSIUM 3.7 mmol/L (3.5-5.1); SODIUM 145 mmol/L (135-144)
[2018-03-03] MEDS ORDERED: POTASSIUM CHLORIDE 20 MEQ POWDER FOR ORAL SOLN PO ×2 (06:00)
[2018-03-03] MEDS: PANTOPRAZOLE 40 MG INJ IV (06:32)
[2018-03-03] MEDS ORDERED: PROPOFOL 200 MG INJ (07:00)
[2018-03-03] MEDS: ENOXAPARIN 60 MG/0.6 ML SYG SC (08:24)
[2018-03-03] MEDS: ASPIRIN 81 MG TAB NGT (09:00)
[2018-03-03] MEDS: DOCUSATE SODIUM 10 MG/ML (10ML CUP) NGT ×2 (09:00→21:00)
[2018-03-03] MEDS: BALSAM PERU/CASTOR OIL 60 GM TUBE TOP ×2 (09:00→17:41)
[2018-03-03 10:23] LABS: AADO2 Arterial 72.1 mmHg (7.0-24.0); Allen Test ACCEPTAB; Arterial Base Excess 0.1 mmol/L (-3.0-3); Arterial Blood Gas Oxygen Sat 97.5 mmHG (95.0-100.0); Arterial COHb 0.3 % (0.0-3.0); Arterial Fraction of Oxyhgb 96.9 % (93.0-99.0); Arterial MetHb 0.3 % (0.0-1.5); Arterial Total Hemglobin 9.9 g/dl (12.0-18.0); Arterial pCO2 26.7 mmhg (35-45); MODE VENT - AC; Site Left Radial
[2018-03-03] MEDS: FENTAnyl (DRIP) 1000 mcg/100mL 100 ML IV (10:36)
[2018-03-03] MEDS: LEVOTHYROXINE 100 MCG VIAL IV (10:44)
[2018-03-03] MEDS ORDERED: LIDOCAINE 1% (STERILE-PAK) 30 ML INJ (12:33)
[2018-03-03] MEDS: HYDROmorphONE 1 MG/ML SYG IV ×2 (16:29→22:09)
[2018-03-04] MEDS ORDERED: ROCURONIUM 50 MG INJ (00:11)
[2018-03-04] MEDS ORDERED: EPHEDrine SULFATE 50 MG/5 ML SYG (00:11)
[2018-03-04] MEDS: HYDROmorphONE 1 MG/ML SYG IV ×5 (03:43→22:46)
[2018-03-04 05:05] LABS: AADO2 Arterial 85.2 mmHg (7.0-24.0); Arterial Base Excess -0.7 mmol/L (-3.0-3); Arterial Blood Gas Oxygen Sat 98.2 mmHG (95.0-100.0); Arterial COHb 0.6 % (0.0-3.0); Arterial Fraction of Oxyhgb 97.3 % (93.0-99.0); Arterial MetHb 0.3 % (0.0-1.5); Arterial Total Hemglobin 12.4 g/dl (12.0-18.0); Arterial pCO2 30.4 mmhg (35-45); MODE VENT - AC; Site LB
[2018-03-04] MEDS: PANTOPRAZOLE 40 MG INJ IV (05:52)
[2018-03-04] MEDS: BALSAM PERU/CASTOR OIL 60 GM TUBE TOP ×2 (09:00→17:00)
[2018-03-04] MEDS: DOCUSATE SODIUM 10 MG/ML (10ML CUP) NGT ×2 (09:00→21:00)
[2018-03-04] MEDS: ASPIRIN 81 MG TAB NGT (09:00)
[2018-03-04] MEDS: LEVOTHYROXINE 100 MCG VIAL IV (10:03)
[2018-03-04] MEDS: ENOXAPARIN 60 MG/0.6 ML SYG SC (10:18)
[2018-03-04] MEDS: PROPOFOL 100 ML IV ×2 (10:30→21:04)
[2018-03-04] MEDS ORDERED: LACTATED RINGER'S 1,000 ML IV (11:00)
[2018-03-04] MEDS: DEXTROSE 5%-0.45% NACL 1,000 ML IV ×2 (12:22→23:58)
[2018-03-04] MEDS: DIGOXIN 0.125 MG TAB PO (13:00)
[2018-03-05] MEDS: HYDROmorphONE 1 MG/ML SYG IV ×4 (02:56→21:33)
[2018-03-05] MEDS: PANTOPRAZOLE 40 MG INJ IV (05:02)
[2018-03-05 05:06] LABS: ADD MAN DIFF? NO
[2018-03-05 05:12] LABS: BASOPHILS % 0.2 % (0.0-2.0); EOSINOPHILS % 0.2 % (0.0-7.0); HEMATOCRIT 28.1 % (37.0-47.0); HEMOGLOBIN 8.4 g/dl (12.0-16.0); LYMPHOCYTES # 1.1 10^3/ul (0.8-2.9); LYMPHOCYTES % 9.7 % (15.0-51.0); MEAN CORPUSCULAR HEMOGLOBIN 25.5 pg (29.0-33.0); MEAN CORPUSCULAR HGB CONC 29.9 g/dl (32.0-37.0); MEAN CORPUSCULAR VOLUME 85.2 fl (82.0-101.0); MEAN PLATELET VOLUME 11.4 fl (7.4-10.4); MONOCYTE # 0.6 10^3/ul (0.3-0.9); MONOCYTES % 5.3 % (0.0-11.0); NEUTROPHIL # 9.6 10^3/ul (1.6-7.5); NEUTROPHILS % 83.6 % (39.0-77.0); PLATELET COUNT 346 10^3/UL (140-415); RED CELL DISTRIBUTION WIDTH 15.8 % (11.5-14.5)
[2018-03-05 05:12] LABS: WHITE BLOOD COUNT 11.4 10^3/ul (4.8-10.8)
[2018-03-05 05:43] LABS: ANION GAP 8 (5-13); BLOOD UREA NITROGEN 11 mg/dl (7-20); CALCIUM 7.3 mg/dl (8.4-10.2); CARBON DIOXIDE 22 mmol/L (21-31); CHLORIDE 111 mmol/L (97-110); CREATININE 0.46 mg/dl (0.44-1.00); MAGNESIUM 1.9 mg/dl (1.7-2.5); PHOSPHORUS 2.8 mg/dl (2.5-4.9); SODIUM 141 mmol/L (135-144)
[2018-03-05 06:46] LABS: POTASSIUM 2.8 mmol/L (3.5-5.1)
[2018-03-05 06:47] LABS: GLUCOSE 431 mg/dl (70-220)
[2018-03-05 07:25] LABS: ANION GAP 3 (5-13); BLOOD UREA NITROGEN 11 mg/dl (7-20); CALCIUM 8.1 mg/dl (8.4-10.2); CARBON DIOXIDE 23 mmol/L (21-31); CHLORIDE 117 mmol/L (97-110); GLUCOSE 130 mg/dl (70-220); SODIUM 143 mmol/L (135-144)
[2018-03-05 07:30] LABS: POTASSIUM 2.9 mmol/L (3.5-5.1)
[2018-03-05] MEDS: ASPIRIN 81 MG TAB NGT (08:10)
[2018-03-05] MEDS: DOCUSATE SODIUM 10 MG/ML (10ML CUP) NGT ×2 (08:11→21:05)
[2018-03-05] MEDS: ENOXAPARIN 60 MG/0.6 ML SYG SC (08:12)
[2018-03-05] MEDS: MAGNESIUM SULFATE 1 GM/D5W 100 ML IVPB ×2 (09:00→17:52)
[2018-03-05] MEDS: POTASSIUM CHLORIDE 100 ML IVPB ×4 (09:00→18:26)
[2018-03-05] MEDS: BALSAM PERU/CASTOR OIL 60 GM TUBE TOP ×2 (09:35→21:05)
[2018-03-05] MEDS: LEVOTHYROXINE 100 MCG VIAL IV (10:17)
[2018-03-05] MEDS: MAGNESIUM SULFATE 2 GM/50 ML 50 ML IVPB (15:06)
[2018-03-05] MEDS: DEXTROSE 5%-0.45% NACL 1,000 ML IV (15:25)
[2018-03-05] MEDS ORDERED: PROPOFOL 20 ML (16:45)
[2018-03-05] MEDS ORDERED: ROCURONIUM 50 MG INJ (16:45)
[2018-03-06] MEDS: LORAZEPAM 2 MG INJ IV (00:27)
[2018-03-06] MEDS: DEXTROSE 5%-0.45% NACL 1,000 ML IV ×3 (03:00→14:45)
[2018-03-06] MEDS: PANTOPRAZOLE 40 MG INJ IV (05:28)
[2018-03-06 05:39] LABS: ADD MAN DIFF? NO
[2018-03-06 05:40] LABS: BASOPHILS % 0.2 % (0.0-2.0); EOSINOPHILS % 0.2 % (0.0-7.0); HEMATOCRIT 29.7 % (37.0-47.0); HEMOGLOBIN 9.1 g/dl (12.0-16.0); LYMPHOCYTES # 1.3 10^3/ul (0.8-2.9); MEAN CORPUSCULAR HEMOGLOBIN 25.2 pg (29.0-33.0); MEAN CORPUSCULAR HGB CONC 30.6 g/dl (32.0-37.0); MEAN CORPUSCULAR VOLUME 82.3 fl (82.0-101.0); MEAN PLATELET VOLUME 11.1 fl (7.4-10.4); MONOCYTE # 0.5 10^3/ul (0.3-0.9); MONOCYTES % 4.9 % (0.0-11.0); NEUTROPHIL # 8.2 10^3/ul (1.6-7.5); NEUTROPHILS % 80.7 % (39.0-77.0); PLATELET COUNT 329 10^3/UL (140-415); RED BLOOD COUNT 3.61 10^6/ul (4.20-5.40); RED CELL DISTRIBUTION WIDTH 15.3 % (11.5-14.5)
[2018-03-06 05:40] LABS: WHITE BLOOD COUNT 10.2 10^3/ul (4.8-10.8)
[2018-03-06 06:14] LABS: ANION GAP 8 (5-13); BLOOD UREA NITROGEN 8 mg/dl (7-20); CALCIUM 8.1 mg/dl (8.4-10.2); CARBON DIOXIDE 22 mmol/L (21-31); CHLORIDE 112 mmol/L (97-110); CREATININE 0.48 mg/dl (0.44-1.00); GLUCOSE 115 mg/dl (70-220); MAGNESIUM 2.2 mg/dl (1.7-2.5); PHOSPHORUS 1.9 mg/dl (2.5-4.9); SODIUM 142 mmol/L (135-144)
[2018-03-06] MEDS: LEVOTHYROXINE 100 MCG VIAL IV (07:33)
[2018-03-06] MEDS: DIGOXIN 0.125 MG TAB PO (07:33)
[2018-03-06] MEDS: ASPIRIN 81 MG TAB NGT (07:33)
[2018-03-06] MEDS: DOCUSATE SODIUM 10 MG/ML (10ML CUP) NGT ×2 (07:33→20:18)
[2018-03-06] MEDS: BALSAM PERU/CASTOR OIL 60 GM TUBE TOP ×2 (07:34→20:18)
[2018-03-06] MEDS: ENOXAPARIN 60 MG/0.6 ML SYG SC (07:52)
[2018-03-06 08:37] LABS: POTASSIUM 3.4 mmol/L (3.5-5.1)
[2018-03-06] MEDS: HYDROmorphONE 1 MG/ML SYG IV ×4 (08:49→22:21)
[2018-03-06] MEDS: POTASSIUM PHOSPHATE 30 MM in SOD CHLORIDE 0.9% 250 ML IVPB (09:34)
[2018-03-06] MEDS: POTASSIUM CHLORIDE 50 ML IVPB ×2 (11:08→12:32)
[2018-03-06] MEDS ORDERED: LORAZEPAM 2 MG INJ IV (14:00)
[2018-03-07] MEDS ORDERED: LEVOTHYROXINE 25 MCG TAB NGT (06:00)
[2018-03-07] MEDS ORDERED: LEVOTHYROXINE 25 MCG TAB PO (06:00)
== END 2018-03-06 23:06 | DRG 4 ==
LOC: 6WM 03-05 07:54 → E/R 04:59 → ICU 08:05
PROVIDERS: Internal Medicine
PROC: 02H633Z Insertion of Infusion Device into Right Atrium, Percutaneous Approach (ICD-10-PCS; principal; 2018-03-03 12:59)
PROC: 0B110F4 Bypass Trachea to Cutaneous with Tracheostomy Device, Open Approach (ICD-10-PCS; 2018-03-03 12:59)
PROC: 5A1955Z Respiratory Ventilation, Greater than 96 Consecutive Hours (ICD-10-PCS; 2018-03-03 12:59)
PROC: 0BH18EZ Insertion of Endotracheal Airway into Trachea, Via Natural or Artificial Opening Endoscopic (ICD-10-PCS; 2018-03-03 12:59)
PROC: 0BH18EZ Insertion of Endotracheal Airway into Trachea, Via Natural or Artificial Opening Endoscopic (ICD-10-PCS; 2018-03-03 12:59)
PROC: 0DH63UZ Insertion of Feeding Device into Stomach, Percutaneous Approach (ICD-10-PCS; 2018-03-03 12:59)
DX: A41.9 Sepsis, unspecified organism (principal); J96.01 Acute respiratory failure with hypoxia; J96.02 Acute respiratory failure with hypercapnia; R65.21 Severe sepsis with septic shock; I50.33 Acute on chronic diastolic (congestive) heart failure; J18.0 Bronchopneumonia, unspecified organism; G93.40 Encephalopathy, unspecified; N39.0 Urinary tract infection, site not specified; E87.0 Hyperosmolality and hypernatremia; E03.9 Hypothyroidism, unspecified; I48.0 Paroxysmal atrial fibrillation; M81.0 Age-related osteoporosis without current pathological fracture; E87.6 Hypokalemia; B96.20 Unspecified Escherichia coli [E. coli] as the cause of diseases classified elsewhere; L89.90 Pressure ulcer of unspecified site, unspecified stage; Z95.0 Presence of cardiac pacemaker
CPT/HCPCS: 31500; 36415; 36569; 36600; 71045; 76937; 80048; 80053; 80162; 80202; 81001; 82803; 82962; 83036; 83605; 83735; 83880; 84100; 84439; 84443; 84484; 85025; 85610; 85730; 87040; 87070; 87081; 87086; 87400; 90686; 93005; 93306; 94002; 94003; 94664; 94770; 96374; 99291-25

== ENCOUNTER 2018-04-24 09:55 | Day surgery (SDC) | payer OTHER, MEDICAID, MEDICARE ==
[2018-04-24] MEDS ORDERED: METHYLENE BLUE 1% 10 ML INJ NGT (10:18)
[2018-04-24] MEDS ORDERED: PROPOFOL 40 ML (10:40)
[2018-04-24] MEDS ORDERED: LIDOCAINE 100 MG SYRINGE (10:40)
== END 2018-04-24 17:13 | disposition home or self-care (01) ==
LOC: GIL 09:55
DX: Z12.11 Encounter for screening for malignant neoplasm of colon (principal); K63.2 Fistula of intestine
CPT/HCPCS: 45378

== ENCOUNTER 2018-05-01 13:36 | Inpatient (IN) | payer MEDICARE, OTHER ==
[2018-05-01 14:12] LABS: ADD MAN DIFF? NO
[2018-05-01] MEDS: ACETAMINOPHEN 650 MG SUPP PR (14:16)
[2018-05-01] MEDS: PIPER-TAZO 3.375 GM IV (PMX) 100 ML IVPB ×3 (14:16→23:34)
[2018-05-01 14:17] LABS: ABNORMAL IP MESSAGE 1; BASOPHILS % 0.4 % (0.0-2.0); EOSINOPHILS % 0.1 % (0.0-7.0); HEMATOCRIT 30.8 % (37.0-47.0); HEMOGLOBIN 8.5 g/dl (12.0-16.0); LYMPHOCYTES # 2.2 10^3/ul (0.8-2.9); LYMPHOCYTES % 20.8 % (15.0-51.0); MEAN CORPUSCULAR HEMOGLOBIN 23.9 pg (29.0-33.0); MEAN CORPUSCULAR HGB CONC 27.6 g/dl (32.0-37.0); MEAN CORPUSCULAR VOLUME 86.5 fl (82.0-101.0); MONOCYTE # 0.8 10^3/ul (0.3-0.9); MONOCYTES % 7.4 % (0.0-11.0); NEUTROPHIL # 7.6 10^3/ul (1.6-7.5); NEUTROPHILS % 70.8 % (39.0-77.0); PLATELET COUNT 197 10^3/UL (140-415); RED BLOOD COUNT 3.56 10^6/ul (4.20-5.40); RED CELL DISTRIBUTION WIDTH 16.5 % (11.5-14.5)
[2018-05-01 14:17] LABS: WHITE BLOOD COUNT 10.7 10^3/ul (4.8-10.8)
[2018-05-01] MEDS: SOD CHLORIDE 0.9% 2,050 ML IV (14:17)
[2018-05-01 14:19] LABS: POSITIVE DIFF @See below
[2018-05-01 14:33] LABS: ALANINE AMINOTRANSFERASE 46 IU/L (13-69); ALBUMIN 2.8 g/dl (3.3-4.9); ALBUMIN/GLOBULIN RATIO 0.71; ALKALINE PHOSPHATASE 106 IU/L (42-121); ASPARTATE AMINO TRANSFERASE 61 IU/L (15-46); BILIRUBIN,INDIRECT 0.3 mg/dl (0-1.1); BILIRUBIN,TOTAL 0.3 mg/dl (0.2-1.3); BLOOD UREA NITROGEN 61 mg/dl (7-20); CALCIUM 8.7 mg/dl (8.4-10.2); CHLORIDE 82 mmol/L (97-110); CREATININE 0.82 mg/dl (0.44-1.00); GLUCOSE 105 mg/dl (70-220); POTASSIUM 3.7 mmol/L (3.5-5.1); SODIUM 141 mmol/L (135-144); TOTAL PROTEIN 6.7 g/dl (6.1-8.1)
[2018-05-01 14:36] LABS: AADO2 Arterial 147.4 mmHg (7.0-24.0); Allen Test ACCEPTAB; Arterial Base Excess 25.4 mmol/L (-3.0-3); Arterial Blood Gas Oxygen Sat 96.6 mmHG (95.0-100.0); Arterial COHb 0.5 % (0.0-3.0); Arterial Fraction of Oxyhgb 95.9 % (93.0-99.0); Arterial HCO3 50.2 mmol/L (22.0-26.0); Arterial MetHb 0.2 % (0.0-1.5); MODE VENT - AC; Site Right Radial
[2018-05-01 14:37] LABS: INR 1.24; PROTIME 15.7 Sec (11.9-14.9); PT RATIO 1.2
[2018-05-01 14:38] LABS: PARTIAL THROMBOPLASTIN TIME 45.6 Sec (23.0-35.0)
[2018-05-01 14:40] LABS: ANION GAP 2 (5-13)
[2018-05-01 14:42] LABS: CARBON DIOXIDE 57 mmol/L (21-31)
[2018-05-01 14:45] LABS: TROPONIN-I 0.052 ng/ml (0.000-0.120)
[2018-05-01 14:47] LABS: ADD UMIC YES; UR ASCORBIC ACID 40 mg/dL (NEGATIVE); UR BACTERIA FEW /HPF (NONE SEEN); UR BILIRUBIN (Dip) NEGATIVE (NEGATIVE); UR BLOOD (Dip) NEGATIVE (NEGATIVE); UR CLARITY SLIGHTLY CLOUDY (CLEAR); UR COLOR YELLOW (YELLOW); UR GLUCOSE (Dip) NEGATIVE (NEGATIVE); UR KETONES (Dip) NEGATIVE (NEGATIVE); UR LEUKOCYTE ESTERASE (Dip) 1+ Leu/ul (NEGATIVE); UR NITRITE (Dip) NEGATIVE (NEGATIVE); UR RBC 1 /HPF (0-5); UR SPECIFIC GRAVITY (Dip) 1.011 (1.003-1.030); UR TOTAL PROTEIN (Dip) NEGATIVE (NEGATIVE); UR UROBILINOGEN (Dip) NEGATIVE (NEGATIVE); UR WBC 23 /HPF (0-5)
[2018-05-01] MEDS: VANCOMYCIN 1 GM (PMX) 250 ML IVPB (14:58)
[2018-05-01] MEDS: LIDOCAINE 1% (MPF) 5 ML VIAL SC (15:00)
[2018-05-01] MEDS: SOD CHLORIDE 0.9% 1,000 ML IV ×2 (17:00→20:05)
[2018-05-01 17:31] LABS: AADO2 Arterial 166.4 mmHg (7.0-24.0); Allen Test ACCEPTAB; Arterial COHb 0.3 % (0.0-3.0); Arterial Fraction of Oxyhgb 95.4 % (93.0-99.0); Arterial HCO3 45.3 mmol/L (22.0-26.0); Arterial MetHb 0.3 % (0.0-1.5); Arterial pCO2 44.6 mmhg (35-45); MODE VENT - AC; Site Right Radial
[2018-05-01 17:58] LABS: LACTIC ACID 2.3 mmol/L (0.5-2.0)
[2018-05-01] MEDS ORDERED: VANCOMYCIN IV PER PHARMACY XX (18:30)
[2018-05-01] MEDS ORDERED: ONDANSETRON 4 MG INJ IV (18:30)
[2018-05-01] MEDS ORDERED: NACL 0.9% 3 ML SYG IV (18:30)
[2018-05-01] MEDS: morphine 2 MG INJ IV ×2 (19:03→19:09)
[2018-05-01] MEDS ORDERED: morphine 4 MG/ML VIAL (19:07)
[2018-05-01] MEDS: hydrALAzine 20 MG INJ IV (19:50)
[2018-05-01] MEDS: ASCORBIC ACID 500 MG TAB GTB (20:29)
[2018-05-01] MEDS: AMIODARONE 200 MG TAB GTB (20:29)
[2018-05-01] MEDS: APIXABAN 5 MG TABLET GTB (20:30)
[2018-05-01] MEDS: QUETIAPINE 25 MG TAB GTB (20:30)
[2018-05-02] MEDS: SOD CHLORIDE 0.9% 1,000 ML IV ×2 (01:19→03:25)
[2018-05-02] MEDS: PIPER-TAZO 3.375 GM IV (PMX) 100 ML IVPB ×4 (05:12→23:44)
[2018-05-02 05:16] LABS: ADD MAN DIFF? NO
[2018-05-02 05:29] LABS: ABNORMAL IP MESSAGE 1; HEMATOCRIT 28.4 % (37.0-47.0); HEMOGLOBIN 8.1 g/dl (12.0-16.0); MEAN CORPUSCULAR HEMOGLOBIN 24.5 pg (29.0-33.0); MEAN CORPUSCULAR HGB CONC 28.5 g/dl (32.0-37.0); MEAN CORPUSCULAR VOLUME 85.8 fl (82.0-101.0); MEAN PLATELET VOLUME 11.6 fl (7.4-10.4); PLATELET COUNT 145 10^3/UL (140-415); RED BLOOD COUNT 3.31 10^6/ul (4.20-5.40); RED CELL DISTRIBUTION WIDTH 17.3 % (11.5-14.5)
[2018-05-02 05:29] LABS: WHITE BLOOD COUNT 8.6 10^3/ul (4.8-10.8)
[2018-05-02 05:48] LABS: POSITIVE DIFF @See below
[2018-05-02 06:12] LABS: BLOOD UREA NITROGEN 46 mg/dl (7-20); CALCIUM 7.8 mg/dl (8.4-10.2); CHLORIDE 100 mmol/L (97-110); GLUCOSE 80 mg/dl (70-220); MAGNESIUM 2.2 mg/dl (1.7-2.5); PHOSPHORUS 2.6 mg/dl (2.5-4.9); POTASSIUM 3.5 mmol/L (3.5-5.1); SODIUM 146 mmol/L (135-144)
[2018-05-02] MEDS: LEVOTHYROXINE 25 MCG TAB GTB (06:24)
[2018-05-02 06:28] LABS: BASOPHILS % 0.5 % (0.0-2.0); EOSINOPHILS # 0.1 10^3/ul (0.0-0.5); EOSINOPHILS % 0.9 % (0.0-7.0); LYMPHOCYTES # 1.4 10^3/ul (0.8-2.9); LYMPHOCYTES % 16.1 % (15.0-51.0); MONOCYTE # 0.6 10^3/ul (0.3-0.9); MONOCYTES % 6.9 % (0.0-11.0); NEUTROPHIL # 6.5 10^3/ul (1.6-7.5); NEUTROPHILS % 75.1 % (39.0-77.0)
[2018-05-02 06:35] LABS: TROPONIN-I 0.046 ng/ml (0.000-0.120)
[2018-05-02 07:01] LABS: ANION GAP 8 (5-13)
[2018-05-02 07:06] LABS: CARBON DIOXIDE 38 mmol/L (21-31)
[2018-05-02] MEDS: VANCOMYCIN 1 GM 250 ML IVPB (08:06)
[2018-05-02] MEDS: LANSOPRAZOLE 30 MG CAP GTB (08:45)
[2018-05-02] MEDS: ASCORBIC ACID 500 MG TAB GTB ×2 (08:45→20:08)
[2018-05-02] MEDS: APIXABAN 5 MG TABLET GTB ×2 (08:45→20:08)
[2018-05-02] MEDS: CHLORHEXIDINE GLUCONATE 15 ML UD CUP MM (08:45)
[2018-05-02] MEDS: QUETIAPINE 25 MG TAB GTB ×2 (08:45→20:08)
[2018-05-02] MEDS: BETA CAROTENE/VIT C/E/MIN TAB GTB (08:45)
[2018-05-02] MEDS: AMIODARONE 200 MG TAB GTB ×2 (08:46→20:09)
[2018-05-02] MEDS: CHOLESTYRAMINE 4 GM PACKET GTB (08:46)
[2018-05-02] MEDS ORDERED: MUPIROCIN CALCIUM XX (09:00)
[2018-05-02 09:10] LABS: AADO2 Arterial 156.4 mmHg (7.0-24.0); Allen Test ACCEPTAB; Arterial Base Excess 14.5 mmol/L (-3.0-3); Arterial Blood Gas Oxygen Sat 98.6 mmHG (95.0-100.0); Arterial COHb 0.7 % (0.0-3.0); Arterial Fraction of Oxyhgb 97.5 % (93.0-99.0); Arterial HCO3 40.1 mmol/L (22.0-26.0); Arterial MetHb 0.4 % (0.0-1.5); Arterial pCO2 58.4 mmhg (35-45); MODE VENT - AC; Site Right Radial
[2018-05-02] MEDS ORDERED: INFLUENZA VIRUS VACCINE 0.5 ML (DISPENSING) IM* (10:00)
[2018-05-02] MEDS: POTASSIUM CHLORIDE 20 MEQ POWDER FOR ORAL SOLN GTB (10:03)
[2018-05-02] MEDS: MUPIROCIN 2% 22 GM OINT TOP (17:53)
[2018-05-03] MEDS: PANTOPRAZOLE 40 MG INJ IV (05:31)
[2018-05-03] MEDS: PIPER-TAZO 3.375 GM IV (PMX) 100 ML IVPB (05:31)
[2018-05-03] MEDS: LEVOTHYROXINE 25 MCG TAB GTB (06:20)
[2018-05-03 08:26] LABS: ADD MAN DIFF? NO
[2018-05-03 08:39] LABS: ABNORMAL IP MESSAGE 1; BASOPHILS % 0.2 % (0.0-2.0); EOSINOPHILS % 0.3 % (0.0-7.0); HEMATOCRIT 27.7 % (37.0-47.0); HEMOGLOBIN 7.9 g/dl (12.0-16.0); LYMPHOCYTES # 1.2 10^3/ul (0.8-2.9); LYMPHOCYTES % 9.5 % (15.0-51.0); MEAN CORPUSCULAR HEMOGLOBIN 23.8 pg (29.0-33.0); MEAN CORPUSCULAR HGB CONC 28.5 g/dl (32.0-37.0); MEAN CORPUSCULAR VOLUME 83.4 fl (82.0-101.0); MEAN PLATELET VOLUME 12.6 fl (7.4-10.4); MONOCYTE # 0.5 10^3/ul (0.3-0.9); MONOCYTES % 4.1 % (0.0-11.0); NEUTROPHIL # 10.9 10^3/ul (1.6-7.5); NEUTROPHILS % 85.4 % (39.0-77.0); PLATELET COUNT 193 10^3/UL (140-415); RED BLOOD COUNT 3.32 10^6/ul (4.20-5.40); RED CELL DISTRIBUTION WIDTH 17.9 % (11.5-14.5)
[2018-05-03 08:39] LABS: WHITE BLOOD COUNT 12.8 10^3/ul (4.8-10.8)
[2018-05-03 08:51] LABS: POSITIVE DIFF @See below
[2018-05-03 09:03] LABS: DIGOXIN < 0.4 ng/ml (1.0-2.0)
[2018-05-03 09:06] LABS: B-TYPE NATRIURETIC PEPTIDE 747 PG/ML (0-450)
[2018-05-03 09:10] LABS: ALANINE AMINOTRANSFERASE 54 IU/L (13-69); ALBUMIN 2.5 g/dl (3.3-4.9); ALBUMIN/GLOBULIN RATIO 0.73; ALKALINE PHOSPHATASE 114 IU/L (42-121); ANION GAP 4 (5-13); ASPARTATE AMINO TRANSFERASE 69 IU/L (15-46); CALCIUM 8.5 mg/dl (8.4-10.2); CARBON DIOXIDE 35 mmol/L (21-31); CHLORIDE 105 mmol/L (97-110); CREATININE 0.65 mg/dl (0.44-1.00); GLUCOSE 122 mg/dl (70-220); POTASSIUM 3.4 mmol/L (3.5-5.1); SODIUM 144 mmol/L (135-144); TOTAL PROTEIN 5.9 g/dl (6.1-8.1)
[2018-05-03 09:11] LABS: BILIRUBIN,INDIRECT 0.1 mg/dl (0-1.1); BLOOD UREA NITROGEN 30 mg/dl (7-20); MAGNESIUM 2.2 mg/dl (1.7-2.5)
[2018-05-03 09:12] LABS: BILIRUBIN,TOTAL 0.1 mg/dl (0.2-1.3)
[2018-05-03] MEDS: APIXABAN 5 MG TABLET GTB ×2 (09:30→20:15)
[2018-05-03] MEDS: QUETIAPINE 25 MG TAB GTB ×2 (09:30→20:15)
[2018-05-03] MEDS: BETA CAROTENE/VIT C/E/MIN TAB GTB (09:30)
[2018-05-03] MEDS: VANCOMYCIN 1 GM 250 ML IVPB (09:30)
[2018-05-03] MEDS: CHOLESTYRAMINE 4 GM PACKET GTB (09:30)
[2018-05-03] MEDS: CHLORHEXIDINE GLUCONATE 15 ML UD CUP MM (09:30)
[2018-05-03] MEDS: AMIODARONE 200 MG TAB GTB ×2 (09:31→20:14)
[2018-05-03] MEDS: ASCORBIC ACID 500 MG TAB GTB ×2 (09:31→20:14)
[2018-05-03] MEDS: MUPIROCIN 2% 22 GM OINT TOP (09:32)
[2018-05-03] MEDS: NYSTATIN SUSP 5 ML CUP PO ×3 (12:37→20:13)
[2018-05-03] MEDS: POTASSIUM CHLORIDE 20 MEQ POWDER FOR ORAL SOLN GTB (12:38)
[2018-05-03 14:14] LABS: FREE T4 (FREE THYROXINE) 1.35 ng/dl (0.85-1.93)
[2018-05-03] MEDS ORDERED: NYSTATIN SUSP 5 ML CUP PO (17:00)
[2018-05-03] MEDS: MEROPENEM 1 GM/50ML(PMX) 50 ML IVPB (20:14)
[2018-05-04] MEDS: PANTOPRAZOLE 40 MG INJ IV (05:37)
[2018-05-04 05:44] LABS: ADD MAN DIFF? NO
[2018-05-04 05:58] LABS: BASOPHILS % 0.2 % (0.0-2.0); EOSINOPHILS % 0.3 % (0.0-7.0); HEMATOCRIT 26.5 % (37.0-47.0); HEMOGLOBIN 7.7 g/dl (12.0-16.0); LYMPHOCYTES # 1.4 10^3/ul (0.8-2.9); MEAN CORPUSCULAR HEMOGLOBIN 24.1 pg (29.0-33.0); MEAN CORPUSCULAR HGB CONC 29.1 g/dl (32.0-37.0); MEAN CORPUSCULAR VOLUME 83.1 fl (82.0-101.0); MEAN PLATELET VOLUME 12.6 fl (7.4-10.4); MONOCYTE # 0.6 10^3/ul (0.3-0.9); MONOCYTES % 5.9 % (0.0-11.0); NEUTROPHIL # 8.6 10^3/ul (1.6-7.5); PLATELET COUNT 191 10^3/UL (140-415); RED BLOOD COUNT 3.19 10^6/ul (4.20-5.40); RED CELL DISTRIBUTION WIDTH 18.1 % (11.5-14.5)
[2018-05-04 05:58] LABS: WHITE BLOOD COUNT 10.8 10^3/ul (4.8-10.8)
[2018-05-04] MEDS: LEVOTHYROXINE 25 MCG TAB GTB (06:01)
[2018-05-04 06:26] LABS: ANION GAP 3 (5-13); BLOOD UREA NITROGEN 24 mg/dl (7-20); CALCIUM 8.5 mg/dl (8.4-10.2); CARBON DIOXIDE 34 mmol/L (21-31); CHLORIDE 108 mmol/L (97-110); GLUCOSE 117 mg/dl (70-220); SODIUM 145 mmol/L (135-144)
[2018-05-04 07:53] LABS: RETICULOCYTE COUNT # 0.115 X10^6 (0.020-0.110); RETICULOCYTE COUNT % 3.6 % (0.5-1.5)
[2018-05-04 07:53] LABS: RETICULOCYTE RBC 3.19
[2018-05-04 08:23] LABS: IRON 17 ug/dl (35-150)
[2018-05-04 08:32] LABS: % IRON SATURATION 5 % SAT (22-52); TOTAL IRON BINDING CAPACITY 326 ug/dl (241-421)
[2018-05-04 09:01] LABS: FERRITIN 38.4 ng/ml (11.1-264.0)
[2018-05-04] MEDS: BETA CAROTENE/VIT C/E/MIN TAB GTB (09:22)
[2018-05-04] MEDS: CHLORHEXIDINE GLUCONATE 15 ML UD CUP MM (09:22)
[2018-05-04] MEDS: CHOLESTYRAMINE 4 GM PACKET GTB (09:22)
[2018-05-04] MEDS: APIXABAN 5 MG TABLET GTB ×2 (09:23→20:52)
[2018-05-04] MEDS: AMIODARONE 200 MG TAB GTB ×2 (09:26→20:53)
[2018-05-04] MEDS: ASCORBIC ACID 500 MG TAB GTB ×2 (09:26→20:52)
[2018-05-04] MEDS: QUETIAPINE 25 MG TAB GTB ×2 (09:26→20:52)
[2018-05-04] MEDS: NYSTATIN SUSP 5 ML CUP PO ×4 (09:27→20:52)
[2018-05-04] MEDS: MUPIROCIN 2% 22 GM OINT TOP (09:28)
[2018-05-04 09:36] LABS: FOLATE > 20.0 ng/ml (2.8-20.0)
[2018-05-04] MEDS: MEROPENEM 1 GM/50ML(PMX) 50 ML IVPB ×2 (11:04→21:13)
[2018-05-04 17:25] LABS: OCCULT BLOOD STOOL NEGATIVE (NEGATIVE)
[2018-05-05] MEDS: PANTOPRAZOLE 40 MG INJ IV (06:14)
[2018-05-05] MEDS: LEVOTHYROXINE 25 MCG TAB GTB (06:15)
[2018-05-05] MEDS: NYSTATIN SUSP 5 ML CUP PO ×4 (09:30→20:43)
[2018-05-05] MEDS: CHOLESTYRAMINE 4 GM PACKET GTB (09:30)
[2018-05-05] MEDS: MEROPENEM 1 GM/50ML(PMX) 50 ML IVPB ×2 (09:30→20:30)
[2018-05-05] MEDS: CHLORHEXIDINE GLUCONATE 15 ML UD CUP MM (09:30)
[2018-05-05] MEDS: BETA CAROTENE/VIT C/E/MIN TAB GTB (09:31)
[2018-05-05] MEDS: ASCORBIC ACID 500 MG TAB GTB ×2 (09:31→20:35)
[2018-05-05] MEDS: AMIODARONE 200 MG TAB GTB ×2 (09:31→20:36)
[2018-05-05] MEDS: QUETIAPINE 25 MG TAB GTB ×2 (09:31→20:34)
[2018-05-05] MEDS: APIXABAN 5 MG TABLET GTB ×2 (09:32→20:35)
[2018-05-05] MEDS: MUPIROCIN 2% 22 GM OINT TOP (09:53)
[2018-05-05 11:34] LABS: ADD MAN DIFF? NO
[2018-05-05 11:36] LABS: WHITE BLOOD COUNT 8.8 10^3/ul (4.8-10.8)
[2018-05-05 11:36] LABS: ABNORMAL IP MESSAGE 1; BASOPHILS % 0.1 % (0.0-2.0); EOSINOPHILS % 0.1 % (0.0-7.0); HEMATOCRIT 28.1 % (37.0-47.0); HEMOGLOBIN 7.9 g/dl (12.0-16.0); LYMPHOCYTES # 1.4 10^3/ul (0.8-2.9); LYMPHOCYTES % 16.4 % (15.0-51.0); MEAN CORPUSCULAR HEMOGLOBIN 23.9 pg (29.0-33.0); MEAN CORPUSCULAR HGB CONC 28.1 g/dl (32.0-37.0); MEAN CORPUSCULAR VOLUME 84.9 fl (82.0-101.0); MEAN PLATELET VOLUME 12.3 fl (7.4-10.4); MONOCYTE # 0.6 10^3/ul (0.3-0.9); MONOCYTES % 7.3 % (0.0-11.0); NEUTROPHIL # 6.6 10^3/ul (1.6-7.5); NEUTROPHILS % 75.6 % (39.0-77.0); PLATELET COUNT 177 10^3/UL (140-415); RED BLOOD COUNT 3.31 10^6/ul (4.20-5.40); RED CELL DISTRIBUTION WIDTH 18.4 % (11.5-14.5)
[2018-05-05 11:38] LABS: POSITIVE DIFF @See below
[2018-05-05 11:51] LABS: OCCULT BLOOD STOOL NEGATIVE (NEGATIVE)
[2018-05-05 12:05] LABS: ANION GAP 2 (5-13); BLOOD UREA NITROGEN 19 mg/dl (7-20); CALCIUM 8.6 mg/dl (8.4-10.2); CARBON DIOXIDE 29 mmol/L (21-31); CHLORIDE 109 mmol/L (97-110); GLUCOSE 90 mg/dl (70-220); POTASSIUM 4.1 mmol/L (3.5-5.1); SODIUM 140 mmol/L (135-144)
[2018-05-05] MEDS: ACETAMINOPHEN 650MG/20.3ML CUP GTB (15:54)
[2018-05-05] MEDS: LORAZEPAM 2 MG INJ IV ×2 (17:53→23:57)
[2018-05-06 06:03] LABS: ADD MAN DIFF? NO
[2018-05-06] MEDS: PANTOPRAZOLE 40 MG INJ IV (06:09)
[2018-05-06] MEDS: LEVOTHYROXINE 25 MCG TAB GTB (06:11)
[2018-05-06 06:12] LABS: WHITE BLOOD COUNT 7.4 10^3/ul (4.8-10.8)
[2018-05-06 06:12] LABS: BASOPHILS % 0.4 % (0.0-2.0); EOSINOPHILS % 0.4 % (0.0-7.0); HEMATOCRIT 24.9 % (37.0-47.0); HEMOGLOBIN 7.4 g/dl (12.0-16.0); LYMPHOCYTES # 1.4 10^3/ul (0.8-2.9); LYMPHOCYTES % 18.6 % (15.0-51.0); MEAN CORPUSCULAR HEMOGLOBIN 24.4 pg (29.0-33.0); MEAN CORPUSCULAR HGB CONC 29.7 g/dl (32.0-37.0); MEAN CORPUSCULAR VOLUME 82.2 fl (82.0-101.0); MEAN PLATELET VOLUME 12.4 fl (7.4-10.4); MONOCYTE # 0.5 10^3/ul (0.3-0.9); MONOCYTES % 6.6 % (0.0-11.0); NEUTROPHIL # 5.4 10^3/ul (1.6-7.5); NEUTROPHILS % 73.5 % (39.0-77.0); PLATELET COUNT 240 10^3/UL (140-415); RED BLOOD COUNT 3.03 10^6/ul (4.20-5.40)
[2018-05-06 07:16] LABS: ANION GAP 4 (5-13); BLOOD UREA NITROGEN 19 mg/dl (7-20); CALCIUM 8.7 mg/dl (8.4-10.2); CARBON DIOXIDE 30 mmol/L (21-31); CHLORIDE 108 mmol/L (97-110); CREATININE 0.55 mg/dl (0.44-1.00); GLUCOSE 96 mg/dl (70-220); POTASSIUM 4.2 mmol/L (3.5-5.1); SODIUM 142 mmol/L (135-144)
[2018-05-06] MEDS: AMIODARONE 200 MG TAB GTB (09:14)
[2018-05-06] MEDS: CHOLESTYRAMINE 4 GM PACKET GTB (09:14)
[2018-05-06] MEDS: NYSTATIN SUSP 5 ML CUP PO ×2 (09:14→12:30)
[2018-05-06] MEDS: CHLORHEXIDINE GLUCONATE 15 ML UD CUP MM (09:15)
[2018-05-06] MEDS: MUPIROCIN 2% 22 GM OINT TOP (09:15)
[2018-05-06] MEDS: QUETIAPINE 25 MG TAB GTB (09:15)
[2018-05-06] MEDS: ASCORBIC ACID 500 MG TAB GTB (09:15)
[2018-05-06] MEDS: APIXABAN 5 MG TABLET GTB (09:15)
[2018-05-06] MEDS: MEROPENEM 1 GM/50ML(PMX) 50 ML IVPB (09:19)
[2018-05-06] MEDS ORDERED: morphine LIQ (10 MG/5 ML) CUP GTB (13:00)
[2018-05-06] MEDS ORDERED: morphine LIQ (10 MG/5 ML) CUP PO (13:00)
[2018-05-06] MEDS: ACETAMINOPHEN 650MG/20.3ML CUP GTB (13:58)
[2018-05-06] MEDS: LORAZEPAM 2 MG INJ IV (16:50)
[2018-05-06] MEDS: BETA CAROTENE/VIT C/E/MIN TAB GTB (16:52)
[2018-05-07] MEDS ORDERED: LANSOPRAZOLE 30 MG CAP GTB (06:00)
== END 2018-05-06 17:30 | DRG 870 ==
LOC: E/R 13:36 → 6WM 05-02 11:24 → ICU 17:13
PROVIDERS: Internal Medicine
PROC: 5A1955Z Respiratory Ventilation, Greater than 96 Consecutive Hours (ICD-10-PCS; principal; 2018-05-01)
PROC: 4A133R1 Monitoring of Arterial Saturation, Peripheral, Percutaneous Approach (ICD-10-PCS; 2018-05-01)
PROC: B54MZZA Ultrasonography of Right Upper Extremity Veins, Guidance (ICD-10-PCS; 2018-05-02)
PROC: 05H733Z Insertion of Infusion Device into Right Axillary Vein, Percutaneous Approach (ICD-10-PCS; 2018-05-02)
DX: A41.9 Sepsis, unspecified organism (principal); R65.21 Severe sepsis with septic shock; J18.9 Pneumonia, unspecified organism; R53.2 Functional quadriplegia; N39.0 Urinary tract infection, site not specified; E87.4 Mixed disorder of acid-base balance; G93.40 Encephalopathy, unspecified; I50.32 Chronic diastolic (congestive) heart failure; Z99.11 Dependence on respirator [ventilator] status; J84.9 Interstitial pulmonary disease, unspecified; B37.0 Candidal stomatitis; J96.12 Chronic respiratory failure with hypercapnia; E86.0 Dehydration; I48.91 Unspecified atrial fibrillation; I11.0 Hypertensive heart disease with heart failure; R13.10 Dysphagia, unspecified; E78.5 Hyperlipidemia, unspecified; F03.90 Unspecified dementia, unspecified severity, without behavioral disturbance, psychotic disturbance, mood disturbance, and anxiety; I25.10 Atherosclerotic heart disease of native coronary artery without angina pectoris; E03.9 Hypothyroidism, unspecified; Z93.0 Tracheostomy status; D63.8 Anemia in other chronic diseases classified elsewhere; I48.0 Paroxysmal atrial fibrillation; Z93.1 Gastrostomy status; B96.20 Unspecified Escherichia coli [E. coli] as the cause of diseases classified elsewhere; Z16.12 Extended spectrum beta lactamase (ESBL) resistance; D69.6 Thrombocytopenia, unspecified; Z95.0 Presence of cardiac pacemaker; Z79.01 Long term (current) use of anticoagulants
CPT/HCPCS: 36415; 36600; 70450; 71045; 76937; 80048; 80053; 80162; 81001; 82270; 82607; 82728; 82746; 82803; 83540; 83605; 83735; 83880; 84100; 84439; 84443; 84484; 85025; 85045; 85610; 85730; 87040; 87070; 87081; 87086; 90686; 93005; 94002; 94003; 96365; 96366; 96375; 99291-25